=== PATIENT | male | born 1990 | race Two or more races ===

== ENCOUNTER 2024-09-30 09:26 | Inpatient (IN) | payer MEDICAID, OTHER ==
[~2024-09-30] VITALS: Ht 167.6 cm; Wt 68.1 kg
--- NOTE | 2024-09-30 09:56 | ED.PDOC ---
History of Present Illness HPI Comments 35Y M presents to ED via EMS for chief complaint general weakness. Pt states he keeps "going in and out of sleep" and is "blacking out" multiple times. Pt used meth yesterday. Pt denies SI. Upon ED evaluation, pt also c/o RLE swelling and redness. No known allergies. Chief Complaint: General Weakness Time Seen by MD: 09:33 Primary Care Provider: NONE Reviewed Notes: Medications, Allergies Allergies: Coded Allergies: NO KNOWN ALLERGIES (Unverified , 09/30/24) Information Source: Patient Mode of Arrival: EMS Severity: Mild Timing: Hours Duration: Since onset Prehospital treatment: None Past Medical History PAST MEDICAL HISTORY: Unknown Surgical History: Unknown Family History Family History: Unknown Social History Smoker: Unknown Alcohol: Unknown Drugs: Methamphetamine Lives In: Homeless, Unknown Constitutional: reports: weakness; denies: chills, diaphoresis, fatigue, fever, malaise, sweats, others EENTM: denies: blurred vision, double vision, ear bleeding, ear discharge, ear drainage, ear pain, ear ringing, eye pain, eye redness, hearing loss, mouth pain, mouth swelling, nasal discharge, nose bleeding, nose congestion, nose pain, photophobia, tearing, throat pain, throat swelling, voice changes, others Respiratory: denies: cough, hemoptysis, orthopnea, SOB at rest, shortness of breath, SOB with excertion, stridor, wheezing, others Cardiovascular: denies: chest pain, dizzy spells, diaphoresis, Dyspnea on exertion, edema, irregular heart beat, left arm pain, lightheadedness, palpitations, PND, syncope, others Gastrointestinal: denies: abdomen distended, abdominal pain, blood streaked bowels, constipated, diarrhea, dysphagia, difficulty swallowing, hematemesis, melena, nausea, poor appetite, poor fluid intake, rectal bleeding, rectal pain, vomiting, others Genitourinary: denies: burning, dysuria, flank pain, frequency, hematuria, incontinence, penile discharge, penile sore, pain, testicle pain, testicle swelling, urgency, others Neurological: denies: dizziness, fainting, headache, left sided numbness, left sided weakness, numbness, paresthesia, pre-existing deficit, right sided numbness, right sided weakness, seizure, speech problems, tingling, tremors, weakness, others Musculoskeletal: denies: back pain, gout, joint pain, joint swelling, muscle pain, muscle stiffness, neck pain, others Integumetry: denies: bruises, change in color, change in hair/nails, dryness, laceration, lesions, lumps, rash, wounds, others Allergic/Immunocompromised: denies: Difficulty Healing, Frequent Infections, Hives, Itching, others Hematologic/Lymphatic: denies: anemia, blood clots, easy bleeding, easy bruising, swollen glands, others Endocrine: denies: excessive hunger, excessive sweating, excessive thirst, excessive urination, flushing, intolerance to cold, intolerance to heat, unexplained weight gain, unexplained weight loss, others Psychiatric: denies: anxiety, bipolar disorder, depression, hopeless, panic disorder, schizophrenia, sleepless, suicidal, others All Other Systems: Reviewed and Negative Physical Exam General Appearance: Moderate Distress, Normal HEENT: Normal ENT Inspection, Pharynx Normal, TMs Normal Neck: Full Range of Motion, Non-Tender, Normal, Normal Inspection Respiratory: Chest Non-Tender, Lungs Clear, No Accessory Muscle Use, No Respiratory Distress, Normal Breath Sounds Cardiovascular: No Edema, No JVD, No Murmur, No Gallop, Normal Peripheral Pulses, Regular Rate/Rhythm Breast Exam: Deferred Gastrointestinal: No Organomegaly, Non Tender, No Pulsatile Mass, Normal Bowel Sounds, Soft Genitalia: Deferred Pelvic: Deferred Rectal: Deferred Extremities: No calf tenderness, Normal capillary refill, Normal range of motion, Non-tender, No pedal edema, Other (Mild redness right lower extremity) Musculoskeletal : Apperance: Normal Neurologic: Alert, checking clerk II-XII nml as Tested, No Motor Deficits, Normal Affect, Normal Mood, No Sensory Deficits Cerebellar Function: Normal Reflexes: Normal Skin: Dry, Normal Color, Warm Peripheral Pulses: 3+ Radial (R), 3+ Radial (L) Lymphatic: No Adenopathy Was a procedure done? Was a procedure done?: No Differential Dx Considerations may include: Cellulitis Electrolyte imbalance X-Ray, Labs, Meds, VS Vital Signs Date Time Temp Pulse Resp B/P (MAP) Pulse Ox O2 Delivery O2 Flow Rate FiO2 09/30/24 11:34 99.2 113 16 126/81 (96) 97 99.2 09/30/24 11:16 113 09/30/24 09:26 98.8 110 18 130/70 (90) 98 Lab Test 09/30/24 10:18 Range/Units White Blood Count 15.0 H 4.4-10.8 10^3/uL Red Blood Count 3.96 L 4.5-5.90 10^6/uL Hemoglobin 11.8 L 13.5-17.5 g/dL Hematocrit 34.6 L 41.0-53.0 % Mean Corpuscular Volume 87.3 80.0-100.0 fL Mean Corpuscular Hemoglobin 29.7 28.0-32.0 pg Mean Corpuscular Hemoglobin Concent 34.0 32.0-36.0 g/dL Red Cell Distribution Width 12.7 11.8-14.3 % Platelet Count 331 140-450 10^3/uL Mean Platelet Volume 8.5 6.9-10.8 fL Neutrophils (%) (Auto) 77.0 37.0-80.0 % Lymphocytes (%) (Auto) 8.6 L 10.0-50.0 % Monocytes (%) (Auto) 12.5 H 0.0-12.0 % Eosinophils (%) (Auto) 1.6 0.0-7.0 % Basophils (%) (Auto) 0.3 0.0-2.0 % Neutrophils # (Auto) 11.5 H 1.6-8.6 10 ^3/uL Lymphocytes # (Auto) 1.3 0.4-5.4 10 ^3/uL Monocytes # (Auto) 1.9 H 0-1.3 10 ^3/uL Eosinophils # (Auto) 0.2 0-0.8 10 ^3/uL Basophils # (Auto) 0 0-0.2 10 ^3/uL Nucleated Red Blood Cells 0.0 % Sodium Level 132 L 136-145 mmol/L Potassium Level 3.3 L 3.5-5.1 mmol/L Chloride Level 96 L 98-107 mmol/L Carbon Dioxide Level 25 20-31 mmol/L Anion Gap 11 5-15 Blood Urea Nitrogen 11 9-23 mg/dL Creatinine 0.69 L 0.700-1.30 mg/dL Glomerular Filtration Rate Calc 125 >90 mL/min BUN/Creatinine Ratio 15.9 10.0-20.0 Serum Glucose 125 H 74-106 mg/dL Calcium Level 9.5 8.7-10.4 mg/dL Total Bilirubin 1.0 0.2-1.0 mg/dL Aspartate Amino Transferase (AST) 70 H 13-40 U/L Alanine Aminotransferase (ALT) 49 H 7-40 U/L Alkaline Phosphatase 105 46-116 U/L Total Protein 7.6 5.7-8.2 g/dL Albumin 4.5 3.2-4.8 g/dL Patient alert. Uses drugs. Vitals stable. Answering all questions. Does have mild redness of the right lower extremity. Cellulitis. Counseled patient on effects of using drugs for 15 minutes. Was told to follow up with his primary care physician. Was told to come back if there is any problem. Patient left in came back by ambulance. Establish intravenous access. Was given fluids pain He will be admitted for cellulitis. Time of 1ST Reevaluation: 10:03 Reevaluation 1ST: Unchanged Patient Education/Counseling: Diagnosis, Treatment Family Education/Counseling: No Family Present Departure 1 Departure Time of Disposition: 10:24 Impression: Primary Impression: Cellulitis Qualified Codes: L03.115 - Cellulitis of right lower limb Additional Impression: Drug use Disposition: ADMITTED INPATIENT Admit to: Med Surg Condition: Guarded Critical Care Note Critical Care Time?: No Stability Stability form required: No Heart Score Heart Score: Heart Score Response (Comments) Value History N/A 0 EKG N/A 0 Age N/A 0 Risk Factors N/A 0 Troponin N/A 0 Total 0 I personally scribed for KERI RAMOS MD ([email or web address]) on 09/30/24 at 09:56. Electronically submitted by Andreina Rangel ([employer]). I personally scribed for KERI RAMOS MD ([email or web address]) on 09/30/24 at 09:57. Electronically submitted by Andreina Rangel ([employer]). KERI RAMOS MD Sep 30, 2024 09:56
[2024-09-30 10:44] LABS: Basophils # (auto) 0 10 ^3/uL (0-0.2); Basophils % (auto) 0.3 % (0.0-2.0); Eosinophils # (auto) 0.2 10 ^3/uL (0-0.8); Eosinophils % (auto) 1.6 % (0.0-7.0); Hematocrit 34.6 % (41.0-53.0); Hemoglobin 11.8 g/dL (13.5-17.5); Lymphocytes # (auto) 1.3 10 ^3/uL (0.4-5.4); Lymphocytes % (auto) 8.6 % (10.0-50.0); Mean Corpuscular Hemoglobin 29.7 pg (28.0-32.0); Mean Corpuscular Volume 87.3 fL (80.0-100.0); Monocytes # (auto) 1.9 10 ^3/uL (0-1.3); Monocytes % (auto) 12.5 % (0.0-12.0); Neutrophils # (auto) 11.5 10 ^3/uL (1.6-8.6); Platelet Count (auto) 331 10^3/uL (140-450); Red Blood Cells 3.96 10^6/uL (4.5-5.90); Red Cell Distribution Width 12.7 % (11.8-14.3)
[2024-09-30 10:45] LABS: Alanine Aminotransferase 49 U/L (7-40); Albumin 4.5 g/dL (3.2-4.8); Alkaline Phosphatase 105 U/L (46-116); Anion Gap 11 (5-15); Aspartate Aminotransferase 70 U/L (13-40); BUN/Creatinine Ratio 15.9 (10.0-20.0); Blood Urea Nitrogen 11 mg/dL (9-23); Calcium 9.5 mg/dL (8.7-10.4); Carbon Dioxide 25 mmol/L (20-31); Chloride 96 mmol/L (98-107); Glucose 125 mg/dL (74-106); Potassium 3.3 mmol/L (3.5-5.1); Sodium 132 mmol/L (136-145); Total Protein 7.6 g/dL (5.7-8.2)
[2024-09-30 12:45] VITALS: PULSE 113; RESP 18; O2SAT 98
[2024-09-30] MEDS: cefTRIAXone 1GM/50ML D5W 50 ML IV ONE (13:08)
[2024-09-30] MEDS ORDERED: ONDANSETRON HCL 4 MG/2 ML VIAL IV PRN (15:15)
[2024-09-30] MEDS ORDERED: LORazepam 0.5 MG TAB PO PRN (15:15)
[2024-09-30 16:09] VITALS: BP 114/52; PULSE 69; RESP 16; TEMP 97.9; O2SAT 95; O2SAT 97
--- NOTE | 2024-09-30 16:37 | DVHHP2 ---
History of Present Illness Reason for Visit: Cellulitis History of Present Illness 35-year-old male presented to the ED via EMS for syncope, weakness. Patient states he has blacked out x3. Patient admits to meth use yesterday. Patient also complains of right lower extremity swelling and redness. Patient denies chest pain, headache, dizziness, diaphoresis, shortness of breath, abdominal pain, no nausea, vomiting, fever, or chills endorsed by the patient. Patient was admitted for further evaluation medical management. Past Medical History Patient would not answer Past Surgical History Patient would not answer Family History Patient would not answer Drugs: Other (Methamphetamine) Review of Systems Constitutional: Yes: Weakness, Malaise; No: Fever, Chills, Sweats, Other Eyes: No: Pain, Vision change, Conjunctivae inflammation, Eyelid inflammation, Other, Redness ENT: No: Ear pain, Ear discharge, Nose pain, Nose discharge, Nose congestion, Mouth pain, Mouth swelling, Throat pain, Throat swelling, Other Respiratory: No: Cough, Dry, Shortness of breath, SOB with excertion, Wheezing, Hemoptysis, Pleuritic Pain, Sputum, Wheezing, Other Cardiovascular: Edema (Bilateral lower extremity edema +1); No: Chest Pain, Palpitations, Orthopnea, Paroxysmal Noc. Dyspnea, Lt Headedness, Other Gastrointestinal: No: Nausea, Vomiting, Abdominal Pain, Diarrhea, Constipation, Melena, Hematochezia, Other Genitourinary: No Dysuria, No Frequency, No Incontinence, No Hematuria, No Retention, No Other Musculoskeletal: leg pain (Bilateral); No: other, neck pain, shoulder pain, arm pain, back pain, hand pain, foot pain Skin: Other (Sore to left paz); No: Rash, Lesions, Jaundice, Bruising Neurological: No: Weakness, Numbness, Incoordination, Change in speech, C onfusion, Seizures, Other Allergies: Coded Allergies: NO KNOWN ALLERGIES (Unverified , 09/30/24) Medications Current Medications Medications Dose Ordered Sig/Nigel Route Start Time Stop Time Status Last Admin Dose Admin Lorazepam 0.5 mg Q6HP PRN PO 09/30/24 15:15 Acetaminophen/ Hydrocodone Bitart 1 tab Q4HP PRN PO 09/30/24 15:15 Ondansetron HCl 4 mg Q4HP PRN IV 09/30/24 15:15 Morphine Sulfate 2 mg Q4HPRN PRN IV 09/30/24 15:15 Exam Vital Signs Vital Signs Date Time Temp Pulse Resp B/P (MAP) Pulse Ox O2 Delivery O2 Flow Rate FiO2 09/30/24 15:00 89 122/66 (84) 99 09/30/24 14:00 18 09/30/24 12:45 Room Air* 0 21 09/30/24 11:34 99.2 99.2 General Appearance: Alert, Oriented X3, Cooperative, No acute distress HEENT: Atraumatic, PERRLA, EOMI, Mucous membr. moist/pink Respiratory: Clear to auscultation, Normal air movement Cardiovascular: Regular rate, Normal S1, Normal S2, No murmurs Abdominal: Normal bowel sounds, Soft, No tenderness, No hepatospenomegaly, No masses Extremities: No clubbing, No cyanosis, No edema, Normal pulses, No tenderness/swelling Skin: No rashes, No breakdown, No significant lesion Neuro: Normal gait, Normal speech, Strength at 5/5 X4 ext, Normal tone, Sensation intact, Cranial nerves 3-12 NL, Reflexes 2+ Psych/Mental Status: Mental status NL, Mood NL Labs/Xrays Labs, imaging and ED notes reviewed Labs Test 09/30/24 10:18 Range/Units White Blood Count 15.0 H 4.4-10.8 10^3/uL Red Blood Count 3.96 L 4.5-5.90 10^6/uL Hemoglobin 11.8 L 13.5-17.5 g/dL Hematocrit 34.6 L 41.0-53.0 % Mean Corpuscular Volume 87.3 80.0-100.0 fL Mean Corpuscular Hemoglobin 29.7 28.0-32.0 pg Mean Corpuscular Hemoglobin Concent 34.0 32.0-36.0 g/dL Red Cell Distribution Width 12.7 11.8-14.3 % Platelet Count 331 140-450 10^3/uL Mean Platelet Volume 8.5 6.9-10.8 fL Neutrophils (%) (Auto) 77.0 37.0-80.0 % Lymphocytes (%) (Auto) 8.6 L 10.0-50.0 % Monocytes (%) (Auto) 12.5 H 0.0-12.0 % Eosinophils (%) (Auto) 1.6 0.0-7.0 % Basophils (%) (Auto) 0.3 0.0-2.0 % Neutrophils # (Auto) 11.5 H 1.6-8.6 10 ^3/uL Lymphocytes # (Auto) 1.3 0.4-5.4 10 ^3/uL Monocytes # (Auto) 1.9 H 0-1.3 10 ^3/uL Eosinophils # (Auto) 0.2 0-0.8 10 ^3/uL Basophils # (Auto) 0 0-0.2 10 ^3/uL Nucleated Red Blood Cells 0.0 % Sodium Level 132 L 136-145 mmol/L Potassium Level 3.3 L 3.5-5.1 mmol/L Chloride Level 96 L 98-107 mmol/L Carbon Dioxide Level 25 20-31 mmol/L Anion Gap 11 5-15 Blood Urea Nitrogen 11 9-23 mg/dL Creatinine 0.69 L 0.700-1.30 mg/dL Glomerular Filtration Rate Calc 125 >90 mL/min BUN/Creatinine Ratio 15.9 10.0-20.0 Serum Glucose 125 H 74-106 mg/dL Calcium Level 9.5 8.7-10.4 mg/dL Total Bilirubin 1.0 0.2-1.0 mg/dL Aspartate Amino Transferase (AST) 70 H 13-40 U/L Alanine Aminotransferase (ALT) 49 H 7-40 U/L Alkaline Phosphatase 105 46-116 U/L Total Protein 7.6 5.7-8.2 g/dL Albumin 4.5 3.2-4.8 g/dL Assessment/Plan Assessment/Plan Cellulitis, right lower extremity Admit to medical/surgical Start antibiotics IV fluids x 1 L Encourage p.o. fluid intake Pain medications p.r.n. Substance abuse, methamphetamines Discussed abstinence Patient would like resources on rehab after hospitalization Consult group social worker UDS pending Ativan p.r.n. Rule out UTI UA pending Hypokalemia Monitor potassium Replace as needed FEN/PPX GI and VTE prophylaxis not indicated Regular diet IV fluids Plan discussed with: Patient My Orders Orders - CAMELIA GILBERT Procedure Category Date Status Time Admit ADMIT 09/30/24 Transmitted 15:04 Code Status CODE 09/30/24 Transmitted 15:04 Vital Signs [facility] 09/30/24 In Process 15:04 Review Orders With [facility] 09/30/24 In Process Adm. 15:04 Bedrest With Bathroom [facility] 09/30/24 In Process Privileg 15:04 Regular Diet DIET 09/30/24 Transmitted Dinner Lorazepam Tablet PHA 09/30/24 In Process (Ativan Tablet) 15:15 Notify Of Changes [facility] 09/30/24 In Process From Base 15:04 Advance Directive [facility] 09/30/24 In Process 15:04 Basic Metabolic Panel LAB 10/01/24 Verified 04:00 Complete Blood Count LAB 10/01/24 Verified 04:00 Patient Condition ORDERS 09/30/24 Transmitted 15:04 Allergies [facility] 09/30/24 In Process 15:04 Hydrocodone-Acet PHA 09/30/24 In Process 5/325mg Tab ([place] 15:15 Ondansetron Hcl PHA 09/30/24 In Process (Zofran) 15:15 Morphine Sulfate PHA 09/30/24 In Process Injection 15:15 Date of Service: Sep 30, 2024 Billing Provider: CAMELIA GILBERT Common Visit Codes: [id number] INP/OBS CARE (HIGH) CAMELIA GILBERT Sep 30, 2024 16:37
--- NOTE | 2024-09-30 17:55 | DVH ---
Bilateral lower extremity venous duplex Clinical History: Lower extremity edema and pain Comparison: None Technique: Duplex Doppler evaluation of the deep venous systems of both lower extremities from the common femora l veins to the popliteal veins including color Doppler and spectral/pulsed waveform analysis was perf ormed. Findings: RIGHT SIDE: The common femoral vein demonstrates appropriate compressibility and waveform variability. There is compressibility/patency of the great saphenous vein at the proximal thigh. The femoral vein demonstrates appropriate compressibility and waveform variability. The deep femoral vein demonstrates appropriate compressibility and waveform variability. The popliteal vein demonstrates appropriate compressibility and waveform variability. There is normal compressibility at the tibioperoneal trunk. LEFT SIDE: The common femoral vein demonstrates appropriate compressibility and waveform variability. There is compressibility/patency of the great saphenous vein at the proximal thigh. The femoral vein demonstrates appropriate compressibility and waveform variability. The deep femoral vein demonstrates appropriate compressibility and waveform variability. The popliteal vein demonstrates appropriate compressibility and waveform variability. There is normal compressibility at the tibioperoneal trunk. Prominent left groin lymph node measuring 0.8 cm in short axis, not grossly enlarged by size criteria . Impression: 1. No right or left femoropopliteal venous thrombosis. HS:Y
--- NOTE | 2024-09-30 18:04 | ECG ---
[facility] Test Date: 2024-09-30 Test Time: 11:16:39 Pat Name: BECKI JEROME Department: ED Room: 0219 B Gender: M Gaming Host: MARITZA : 1990 Requested By: KERI RAMOS Order Number: [id number] Reading MD: Saji Li Measurements Intervals [place] Rate: 113 P: 57 LA: 127 QRS: 57 QRSD: 83 T: -4 QT: 348 QTc: 478 Interpretive Statements Sinus tachycardia Inferolateral infarct, old Baseline wander in lead(s) II,aVR,aVF Electronically Signed On 10-06-2024 10:04:34 PST by Saji Li Please click the below link to view image of tracing.
[2024-09-30 18:40] VITALS: PULSE 96; RESP 16; O2SAT 97
[2024-09-30] MEDS: SODIUM CHLORIDE 0.9% 1,000 ML IV ONE (19:38)
[2024-09-30 20:00] VITALS: PULSE 96; RESP 18; O2SAT 95
[2024-09-30 21:00] VITALS: BP 114/61; PULSE 96; RESP 18; TEMP 97.8; O2SAT 95
[2024-09-30] MEDS: HYDROcodone-ACET 5/325MG TAB PO PRN (21:25)
[2024-10-01 01:00] VITALS: BP 115/62; PULSE 91; RESP 18; TEMP 97.8; O2SAT 97
[2024-10-01 05:00] VITALS: BP 110/64; PULSE 80; RESP 18; TEMP 98; O2SAT 96
[2024-10-01 06:56] LABS: Basophils # (auto) 0 10 ^3/uL (0-0.2); Basophils % (auto) 0.7 % (0.0-2.0); Eosinophils # (auto) 0.3 10 ^3/uL (0-0.8); Eosinophils % (auto) 5.4 % (0.0-7.0); Hemoglobin 10.2 g/dL (13.5-17.5); Lymphocytes # (auto) 1.6 10 ^3/uL (0.4-5.4); Lymphocytes % (auto) 24.8 % (10.0-50.0); Mean Corpuscular Hemoglobin 30.8 pg (28.0-32.0); Mean Corpuscular Hgb Conc. 35.3 g/dL (32.0-36.0); Mean Corpuscular Volume 87.3 fL (80.0-100.0); Monocytes # (auto) 0.9 10 ^3/uL (0-1.3); Monocytes % (auto) 13.5 % (0.0-12.0); Neutrophils # (auto) 3.5 10 ^3/uL (1.6-8.6); Neutrophils % (auto) 55.6 % (37.0-80.0); Platelet Count (auto) 255 10^3/uL (140-450); Red Blood Cells 3.32 10^6/uL (4.5-5.90); Red Cell Distribution Width 12.6 % (11.8-14.3); White Blood Cell 6.4 10^3/uL (4.4-10.8)
[2024-10-01 07:13] LABS: Anion Gap 5 (5-15); Carbon Dioxide 29 mmol/L (20-31); Chloride 104 mmol/L (98-107); Potassium 3.3 mmol/L (3.5-5.1); Sodium 138 mmol/L (136-145)
[2024-10-01 07:14] LABS: Calcium 8.4 mg/dL (8.7-10.4)
[2024-10-01 07:19] LABS: Blood Urea Nitrogen 9 mg/dL (9-23); Glucose 123 mg/dL (74-106)
[2024-10-01 09:00] VITALS: BP 107/59; PULSE 80; RESP 18; TEMP 97.9; O2SAT 98
[2024-10-01] MEDS: cefTRIAXone 1GM/50ML D5W 50 ML IV SCH (09:10)
[2024-10-01] MEDS: MORPHINE SULFATE INJ 2 MG/ml SYRG IV PRN (09:12)
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
--- NOTE | 2024-10-01 11:12 | DVH ---
EXAM: CT HEAD WITHOUT CONTRAST INDICATION: Headache TECHNIQUE: CT of the head without intravenous contrast. Coronal and sagittal reformatted images are submitted. Radiation Dose : 1. Head: CT Dose: CTDI volume is 56.58 mGy. Dose-length product is 1001.91 mGy*cm The dose indicators for CT are the volume Computed Tomography (CT) Dose Index (CTDIvol) and the Dose Length Product (DLP), and are measured in units of mGy and mGy-cm, respectively. These indicators are not patient dose, but values generated from the CT scanner acquisition factors. The report includes radiation exposure data for exposures received during this examination. All CT scans at this medical facility are performed using dose modulation techniques as appropriate to a performed exam including the following: Automated exposure control was utilized; adjustment of the MA and/or KV according to patient size; and use of iterative reconstruction technique. COMPARISON: None FINDINGS: There is no evidence of acute intracranial hemorrhage, extra-axial collection, mass effect, midline s hift, herniation or hydrocephalus. The ventricles, sulci and cisterns are age appropriate. The dejesus-white differentiation is intact. The visualized paranasal sinuses and mastoid air cells are clear. No depressed calvarial fracture. The surrounding soft tissues are unremarkable. IMPRESSION: 1. No evidence of acute intracranial abnormality.
[2024-10-01] MEDS: POTASSIUM CHL 20 Meq TABLET PO ONE (11:28)
[2024-10-01 11:50] LABS: Urine Bacteria FEW /hpf (None Seen); Urine Blood Negative /uL (Negative); Urine Clarity Ex.Turbid (Clear); Urine Color Yellow (Yellow); Urine Protein, UAD TRACE (Negative); Urine Specific Gravity 1.025 (1.001-1.035); Urine Urobilinogen 8 mg/dL (Negative); Urine WBC 3 /hpf (0 - 3); Urine pH 6.5 (5.0-9.0)
[2024-10-01 11:59] LABS: Amphetamine Screen, Urine Pos (NEGATIVE)
[2024-10-01 12:00] LABS: Barbiturate Scree,Urine Neg (NEGATIVE); Benzodiazephine Screen, Urine Neg (NEGATIVE); Cannabinoid Screen, Urine Neg (NEGATIVE); Cocaine Screen, Urine Neg (NEGATIVE); Opiate Scree,Urine Neg (NEGATIVE); Phencyclidine Screen, Urine Neg (NEGATIVE)
[2024-10-01 13:00] VITALS: BP 116/63; PULSE 94; RESP 18; TEMP 97.7; O2SAT 98
[2024-10-01 17:00] VITALS: BP 101/51; PULSE 86; RESP 18; TEMP 98.3; O2SAT 96
[2024-10-01] MEDS: PANTOPRAZOLE 40 MG TAB PO ONE (17:21)
[2024-10-01] MEDS: IBUPROFEN 800 MG TAB PO PRN (19:45)
[2024-10-01 21:00] VITALS: BP 100/54; PULSE 83; RESP 17; TEMP 97.8; O2SAT 98
[2024-10-02 05:00] VITALS: BP 112/63; PULSE 65; RESP 16; TEMP 97.6; O2SAT 98
[2024-10-02 07:04] LABS: Anion Gap 5 (5-15); Carbon Dioxide 28 mmol/L (20-31); Chloride 108 mmol/L (98-107); Potassium 3.8 mmol/L (3.5-5.1); Sodium 141 mmol/L (136-145)
[2024-10-02 07:05] LABS: Calcium 8.7 mg/dL (8.7-10.4)
[2024-10-02 07:10] LABS: BUN/Creatinine Ratio 24.5 (10.0-20.0); Blood Urea Nitrogen 13 mg/dL (9-23); Glucose 109 mg/dL (74-106)
[2024-10-02 07:11] LABS: Magnesium 2.2 mg/dL (1.6-2.6)
[2024-10-02] MEDS: PANTOPRAZOLE 40 MG TAB PO SCH (08:26)
[2024-10-02 09:30] VITALS: BP 111/66; PULSE 75; RESP 16; TEMP 97.9; O2SAT 100
--- NOTE | 2024-10-02 11:11 | DVHPN2 ---
Subjective No new complaints Cellulitis is better Changes from previous H/P or p: Changes Eyes: No Pain, No Vision change, No Conjunctivae inflammation, No Eyelid inflammation, No Other, No Redness ENT: No Ear pain, No Ear discharge, No Nose pain, No Nose discharge, No Nose congestion, No Mouth pain, No Mouth swelling, No Throat pain, No Throat swelling, No Other Cardiovascular: No Chest Pain, No Palpitations, No Orthopnea, No Paroxysmal Noc. Dyspnea; Edema (Bilateral lower extremity edema +1); No Lt Headedness, No Other Respiratory: No Cough, No Dry, No Shortness of breath, No SOB with excertion, No Wheezing, No Hemoptysis, No Pleuritic Pain, No Sputum, No Other Gastrointestinal: No Nausea, No Vomiting, No Abdominal Pain, No Diarrhea, No Constipation, No Melena, No Hematochezia, No Other Genitourinary: No Dysuria, No Frequency, No Incontinence, No Hematuria, No Retention, No Other Musculoskeletal: No other, No neck pain, No shoulder pain, No arm pain, No back pain, No hand pain; leg pain (Bilateral); No foot pain Skin: No Rash, No Lesions, No Jaundice, No Bruising; Other (Sore to left paz) Objective Vitals Vital Signs Date Time Temp Pulse Resp B/P (MAP) Pulse Ox O2 Delivery O2 Flow Rate FiO2 10/02/24 09:30 97.9 75 16 111/66 (81) 100 97.9 10/01/24 07:30 Room Air* 0 21 Intake/Output Intake and Output 10/02/24 07:00 Intake Total 2375 ml Output Total 500 ml Balance 1875 ml Intake Oral 2325 ml IV Total 50 ml Output Urine Total 500 ml # Voids 1 # Bowel Movements 1 General Appearance: Alert, Oriented X3, Cooperative, No acute distress Lungs: Clear to auscultation, Normal air movement Cardiovascular: Regular rate, Normal S1, Normal S2 Abdomen: Normal bowel sounds, Soft, No tenderness Extremities: No edema Medications Current Medications Medications Dose Ordered Sig/Nigel Route Start Time Stop Time Status Last Admin Dose Admin Lorazepam 0.5 mg Q6HP PRN PO 09/30/24 15:15 Acetaminophen/ Hydrocodone Bitart 1 tab Q4HP PRN PO 09/30/24 15:15 10/02/24 08:27 1 TAB Ondansetron HCl 4 mg Q4HP PRN IV 09/30/24 15:15 Morphine Sulfate 2 mg Q4HPRN PRN IV 09/30/24 15:15 10/02/24 00:56 2 MG Ceftriaxone Sodium 50 ml @ 100 mls/hr DAILY@09 IV 10/01/24 09:00 10/02/24 08:27 100 MLS/HR Ibuprofen 800 mg Q8HP PRN PO 10/01/24 16:45 10/01/24 19:45 800 MG Pantoprazole Sodium 40 mg DAILY@0600 PO 10/02/24 06:00 10/02/24 08:26 40 MG Laboratory Results Laboratory Tests 10/01/24 06:16 10/02/24 05:58 Chemistry Test 10/02/24 05:58 Calcium Level 8.7 mg/dL (8.7-10.4) Magnesium Level 2.2 mg/dL (1.6-2.6) Urinalysis Test 10/01/24 11:15 Urine Color Yellow (Yellow) Urine Clarity Ex.turbid (Clear) Urine pH 6.5 (5.0-9.0) Urine Specific [place] 1.025 (1.001-1.035) Urine Protein Trace (Negative) H Urine Ketones 1+ (Negative) H Urine Blood Negative /uL (Negative) Urine Nitrite Negative (Negative) Urine Bilirubin Negative (Negative) Urine Urobilinogen 8 mg/dL (Negative) H Urine Leukocyte Esterase Negative /uL (Negative) Urine RBC 2 /hpf (0 - 3) Urine WBC 3 /hpf (0 - 3) Urine Squamous Epithelial Cells None seen /hpf (<5) Urine Bacteria Few /hpf (None Seen) H Urine Glucose Normal mg/dL (Normal) Assessment/Plan Assessment/Plan Altered level of consciousness Status post possible syncope Rule out seizures Substance abuse with methamphetamine Right leg cellulitis Hypokalemia Plan 10/01/2024: Continue IV antibiotics Pain control CT scan of the head Replace potassium Monitor closely Urine drug screen pending Full code Advance directives discussed for 15 minutes 10/02/2024: Continue IV Rocephin Pain control as needed CT scan of the head was negative Urine drug screen was positive for amphetamines Discharge planning for tomorrow Plan discussed with: Patient My Orders Orders - TORY BARRETT MD Procedure Category Date Status Time Ibuprofen Tablet PHA 10/01/24 In Process (Motrin Tablet) 16:45 Pantoprazole Tablet PHA 10/02/24 In Process (Protonix Tablet) 06:00 Date of Service: Oct 02, 2024 Billing Provider: TORY BARRETT MD Common Visit Codes: [id number] INP/OBS CARE(HIGH) TORY BARRETT MD Oct 02, 2024 11:11
[2024-10-02 13:00] VITALS: BP 117/79; PULSE 75; RESP 17; TEMP 98; O2SAT 98
--- NOTE | 2024-10-02 14:35 | DVH ---
CHEST RADIOGRAPH Indication:SOB Technique: Single frontal view of the chest was obtained Comparison: None FINDINGS: Lines and Tubes: None Lungs: No focal consolidation. Pleura: No effusion. No pneumothorax. Cardiomediastinal contours: Unremarkable Bones: No acute osseous abnormality. IMPRESSION: 1. No acute cardiopulmonary disease.
[2024-10-02 17:00] VITALS: BP 129/62; PULSE 69; RESP 18; TEMP 97.8; O2SAT 100
[2024-10-02 21:00] VITALS: BP 131/74; PULSE 83; RESP 20; TEMP 98.8; O2SAT 100
[2024-10-03 01:00] VITALS: BP 114/62; PULSE 74; RESP 20; TEMP 98.7; O2SAT 97
[2024-10-03 05:00] VITALS: BP 105/63; PULSE 73; RESP 20; TEMP 98.2; O2SAT 98
[2024-10-03 09:00] VITALS: BP 119/62; PULSE 64; RESP 17; TEMP 98.2; O2SAT 98
[2024-10-03 09:23] LABS: Hepatitis B Surface Antigen Negative (Negative)
[2024-10-03 09:42] LABS: Hepatitis B Core IgM Negative
[2024-10-03 09:44] LABS: Hepatitis A Ab IgM Negative
[2024-10-03] MEDS ORDERED: HYDR-4902 PO (10:00)
[2024-10-03] MEDS ORDERED: AUG875T PO (10:00)
--- NOTE | 2024-10-03 10:04 | DVHDS2 ---
Discharge Summary Date of Admission Sep 30, 2024 at 15:04 Date of Discharge: Oct 03, 2024 Labs/Diagnostic Data: Laboratory Results Test 10/02/24 14:48 10/02/24 05:58 10/01/24 11:15 10/01/24 06:16 HIV (1&2) Antibody Negative (Negative) Sodium Level 141 mmol/L (136-145) Potassium Level 3.8 mmol/L (3.5-5.1) Chloride Level 108 mmol/L (98-107) Carbon Dioxide Level 28 mmol/L (20-31) Anion Gap 5 (5-15) Blood Urea Nitrogen 13 mg/dL (9-23) Creatinine 0.53 mg/dL (0.700-1.30) Glomerular Filtration Rate Calc 136 mL/min (>90) BUN/Creatinine Ratio 24.5 (10.0-20.0) Serum Glucose 109 mg/dL (74-106) Calcium Level 8.7 mg/dL (8.7-10.4) Magnesium Level 2.2 mg/dL (1.6-2.6) B-Type Natriuretic Peptide 61.28 pg/mL (0-100) Thyroid Stimulating Hormone (TSH) 1.88 uIU/mL (0.55-4.78) Urine Color Yellow (Yellow) Urine Clarity Ex.turbid (Clear) Urine pH 6.5 (5.0-9.0) Urine Specific [place] 1.025 (1.001-1.035) Urine Protein Trace (Negative) Urine Ketones 1+ (Negative) Urine Blood Negative /uL (Negative) Urine Nitrite Negative (Negative) Urine Bilirubin Negative (Negative) Urine Urobilinogen 8 mg/dL (Negative) Urine Leukocyte Esterase Negative /uL (Negative) Urine RBC 2 /hpf (0 - 3) Urine WBC 3 /hpf (0 - 3) Urine Squamous Epithelial Cells None seen /hpf (<5) Urine Bacteria Few /hpf (None Seen) Urine Glucose Normal mg/dL (Normal) Urine Opiates Screen Neg (NEGATIVE) Urine Fentanyl Screen Neg (NEGATIVE) Urine Barbiturates Screen Neg (NEGATIVE) Urine Phencyclidine Screen Neg (NEGATIVE) Urine Amphetamines Screen Pos (NEGATIVE) Urine Benzodiazepines Screen Neg (NEGATIVE) Urine Cocaine Screen Neg (NEGATIVE) Urine Cannabinoids Screen Neg (NEGATIVE) White Blood Count 6.4 10^3/uL (4.4-10.8) Red Blood Count 3.32 10^6/uL (4.5-5.90) Hemoglobin 10.2 g/dL (13.5-17.5) Hematocrit 29.0 % (41.0-53.0) Mean Corpuscular Volume 87.3 fL (80.0-100.0) Mean Corpuscular Hemoglobin 30.8 pg (28.0-32.0) Mean Corpuscular Hemoglobin Concent 35.3 g/dL (32.0-36.0) Red Cell Distribution Width 12.6 % (11.8-14.3) Platelet Count 255 10^3/uL (140-450) Mean Platelet Volume 8.3 fL (6.9-10.8) Neutrophils (%) (Auto) 55.6 % (37.0-80.0) Lymphocytes (%) (Auto) 24.8 % (10.0-50.0) Monocytes (%) (Auto) 13.5 % (0.0-12.0) Eosinophils (%) (Auto) 5.4 % (0.0-7.0) Basophils (%) (Auto) 0.7 % (0.0-2.0) Neutrophils # (Auto) 3.5 10 ^3/uL (1.6-8.6) Lymphocytes # (Auto) 1.6 10 ^3/uL (0.4-5.4) Monocytes # (Auto) 0.9 10 ^3/uL (0-1.3) Eosinophils # (Auto) 0.3 10 ^3/uL (0-0.8) Basophils # (Auto) 0 10 ^3/uL (0-0.2) Nucleated Red Blood Cells 0.0 % Test 09/30/24 10:18 Total Bilirubin 1.0 mg/dL (0.2-1.0) Aspartate Amino Transferase (AST) 70 U/L (13-40) Alanine Aminotransferase (ALT) 49 U/L (7-40) Alkaline Phosphatase 105 U/L (46-116) Total Protein 7.6 g/dL (5.7-8.2) Albumin 4.5 g/dL (3.2-4.8) Other Laboratory Tests 10/02/24 05:58 10/01/24 06:16 Brief Hx & Hospital Course: Final diagnoses: Right lower extremity cellulitis Left lower extremity abrasions Hypokalemia Metabolic encephalopathy due to methamphetamine use He was given IV antibiotics for the cellulitis in his right leg He also had abrasions from his monitoring brace that he wears on his left ankle The erythema and edema improved His urine drug screen positive for amphetamine Leukocytosis improved with antibiotics Potassium was replaced He is feeling better now and therefore he will be discharged home on Augmentin for 7 days and Blum p.r.n. Follow up with the his PCP as soon as possible Condition at Discharge: Stable Final Diagnosis/Problems List Right lower extremity cellulitis Left lower extremity abrasions Hypokalemia Metabolic encephalopathy due to methamphetamine use Discharge Disposition: Home SNF Discharge Will this Physician continue t: No Discharge Statement: "Patient was advised to return to the ER or call 911 if any headaches, dizziness, shortness of breath, chest pain, abdominal pain, bleeding, fevers, or worsening of medical condition. Patient was counseled about treatment plan, medications, possible side effects, patientverbalized understanding. All questions were answered to the best of my ability. This discharge took greater then 30 minutes in planning, reviewing documentation, counseling the patient, and discussing with other team members." ASSESSMENT ASSESSMENT Assessment Date of Service: Oct 03, 2024 Billing Provider: TORY BARRETT MD Common Visit Codes: 80543-RSW/OBS DISCH DAY >30min TORY BARRETT MD Oct 03, 2024 10:04
[2024-10-03 10:58] LABS: Hepatitis C Antibody Positive (Negative)
[2024-10-03 13:00] VITALS: BP 127/46; PULSE 79; RESP 18; TEMP 98.7; O2SAT 99
--- NOTE | 2024-10-03 16:20 | DVHSR ---
APPROVED REPORT EXAM: Two-dimensional and M-mode echocardiogram with Doppler and color Doppler. Blood Pressure: 117/79 mmHg INDICATION SOB RISK FACTORS Height: 5'6", Weight: 150 DIMENSIONS LVDd4.4 (3.8-5.7cm)LA (2D)4.3 (1.9-4.0cm)Aortic Root3.0 (2.0-3.7cm) LVDs3.1 (2.5-4.0cm)LA (MM) (1.9-4.0cm)Aortic Cusp Exc2.1 (1.5-2.0cm) EF (%) 55.0 (55-70%)Rt. Atrium4.0 (1.9-4.0cm)Asc. Aorta cm IVSd0.7 (0.7-1.1cm)RV (D) (1.8-2.4cm) PWd0.8 (0.7-1.1cm) Mitral Valve MitralMitral Stenosis E wave0.98m/sMV Mean GR.mmHg A wave0.60m/sMV Peak GR.mmHg E/A ratio1.62D MVAcm2 DECEL [id number] 1/2 Timems Aortic Valve Aortic ValveAortic Stenosis V10.98m/Ernesto Mean GR.5mmHg V21.54m/Ernesto Peak GR.10mmHg LVOT Diameter2.1 (1.8-2.4cm)Doppler AVA2.20cm2 Pulmonic Valve V21.37m/s Tricuspid Valve TR Velocity2.68m/s [id number] Conclusion Normal left ventricular size and dimension. Normal left ventricular systolic function estimated ejec tion fraction 55%. There is a grade 1 diastolic dysfunction. Normal right ventricular size and dimension. Normal right ventricular systolic function. Estimated right ventricular systolic [id number] mm of mercury. Normal biatrial size and dimension. Normal aortic valve structure and function. Normal mitral valve structure function. Normal tricuspid valve structure and function. The pulmonary valve is grossly normal. No pericardial effusion. New
== END 2024-10-03 13:15 | disposition home or self-care (01) | DRG 720 ==
LOC: EDBD 09:26 → ER 09:26 → OVERFLOW 15:04 → CENTRAL 16:17
PROVIDERS: ADMIT Internal Medicine Geriatric Medicine; ATTEND Internal Medicine Geriatric Medicine
DX: A41.9 Sepsis, unspecified organism (principal); G93.41 Metabolic encephalopathy; L03.115 Cellulitis of right lower limb; E87.6 Hypokalemia; T43.655A Adverse effect of methamphetamines, initial encounter; F15.10 Other stimulant abuse, uncomplicated; Z59.00 Homelessness unspecified; Y92.89 Other specified places as the place of occurrence of the external cause
CPT/HCPCS: 36415; 70450; 71045; 80048; 80053; 80074; 80307; 81001; 83735; 83880; 84443; 85025; 86703; 93005; 93306; 93970; G0378

== ENCOUNTER 2024-10-14 17:06 | Inpatient (IN) | payer MEDICAID ==
[~2024-10-14] VITALS: Ht 167.6 cm; Wt 78.6 kg
[~2024-10-14 17:06] MED LIST: AUG875T PO; HYDR-4902 PO
--- NOTE | 2024-10-14 17:15 | ED.PDOC ---
History of Present Illness(SKN HPI Comments 34 y.o male presents to the ED via EMS for a chief complaint of left foot pain x 1 week. Pain presents on the left toe and radiates to patient's ankle, described as sharp and rating a 9/10 on the pain scale. Patient reports he was seen at this hospital about 1-2 weeks ago for same complaint, was diagnosed with cellulitis of the foot, admitted and discharged with PO Penicillin for 7 days. Patient reports finishing the medication but reports wound is not improving. Patient denies any fever, chills, discharge, redness, or swelling. No medical, surgical history or allergies reported. Time Seen by MD: 17:08 Primary Care Provider: NONE History of Present Illness: Nurses Notes, Ocular Care Technician Notes, Medications, Allergies Allergies: Coded Allergies: NO KNOWN ALLERGIES (Unverified , 09/30/24) Home Meds Active Scripts Amoxicillin & Pot Clavulanate (AUGMENTIN TABLET) 875 Mg Tb, 875 MG PO BID for 7 Days, #14 TAB Prov:TORY BARRETT MD 10/03/24 Hydrocodone-Acetaminophen (Hydrocodone Bitartrate/AC 5-325 mg) 1 Tab Tab, 1 TAB PO Q6HP PRN, #15 TAB Prov:TORY BARRETT MD 10/03/24 Information Source: Patient, Emergency Med Personnel Mode of Arrival: EMS Severity: Moderate Timing: Weeks (1) Duration: Since onset Location: Foot Mechanism: Preceding Wound Wound Type: Unknown History of: None Associated Signs and Symptoms: Pain Past Medical History PAST MEDICAL HISTORY: Denies Surgical History: Denies all surgeries Family History Family History: Reviewed,noncontributory to illness Social History Smoker: Cigarettes Alcohol: Denies ETOH Use Drugs: Methamphetamine Lives In: Homeless, Unknown Constitutional: denies: chills, diaphoresis, fatigue, fever, malaise, sweats, weakness, others EENTM: denies: blurred vision, double vision, ear bleeding, ear discharge, ear drainage, ear pain, ear ringing, eye pain, eye redness, hearing loss, mouth pain, mouth swelling, nasal discharge, nose bleeding, nose congestion, nose pain, photophobia, tearing, throat pain, throat swelling, voice changes, others Respiratory: denies: cough, hemoptysis, orthopnea, SOB at rest, shortness of breath, SOB with excertion, stridor, wheezing, others Cardiovascular: denies: chest pain, dizzy spells, diaphoresis, Dyspnea on exertion, edema, irregular heart beat, left arm pain, lightheadedness, palpitations, PND, syncope, others Gastrointestinal: denies: abdomen distended, abdominal pain, blood streaked bowels, constipated, diarrhea, dysphagia, difficulty swallowing, hematemesis, melena, nausea, poor appetite, poor fluid intake, rectal bleeding, rectal pain, vomiting, others Genitourinary: denies: burning, dysuria, flank pain, frequency, hematuria, incontinence, penile discharge, penile sore, pain, testicle pain, testicle swelling, urgency, others Neurological: denies: dizziness, fainting, headache, left sided numbness, left sided weakness, numbness, paresthesia, pre-existing deficit, right sided numbness, right sided weakness, seizure, speech problems, tingling, tremors, weakness, others Musculoskeletal: denies: back pain, gout, joint pain, joint swelling, muscle pain, muscle stiffness, neck pain, others Integumetry: reports: wounds; denies: bruises, change in color, change in hair/nails, dryness, laceration, lesions, lumps, rash, others Allergic/Immunocompromised: denies: Difficulty Healing, Frequent Infections, Hives, Itching, others Hematologic/Lymphatic: denies: anemia, blood clots, easy bleeding, easy bruising, swollen glands, others Endocrine: denies: excessive hunger, excessive sweating, excessive thirst, excessive urination, flushing, intolerance to cold, intolerance to heat, unexplained weight gain, unexplained weight loss, others Psychiatric: denies: anxiety, bipolar disorder, depression, hopeless, panic disorder, schizophrenia, sleepless, suicidal, others All Other Systems: Reviewed and Negative Physical Exam General Appearance: Mild Distress HEENT: Normal ENT Inspection, Pharynx Normal, TMs Normal Neck: Full Range of Motion, Non-Tender, Normal, Normal Inspection Respiratory: Chest Non-Tender, Lungs Clear, No Accessory Muscle Use, No Respiratory Distress, Normal Breath Sounds Cardiovascular: No Edema, No JVD, No Murmur, No Gallop, Normal Peripheral Pulses, Regular Rate/Rhythm Breast Exam: Deferred Gastrointestinal: No Organomegaly, Non Tender, No Pulsatile Mass, Normal Bowel Sounds, Soft Genitalia: Deferred Pelvic: Deferred Rectal: Deferred Extremities: No calf tenderness, Normal capillary refill, No pedal edema Musculoskeletal : Apperance: Normal Neurologic: Alert, environmental emergencies planner II-XII nml as Tested, No Motor Deficits, Normal Affect, Normal Mood, No Sensory Deficits Cerebellar Function: Normal Reflexes: Normal Skin: Dry, Warm, Other (Redness to the left foot with significant swelling around the toes consistent with cellulitis) Lymphatic: No Adenopathy Was a procedure done? Was a procedure done?: No Differential Diagnosis (INTG) Differential Diagnosis: Cellulitis Differential Diagnosis: Abscess, Cellulitis X-Ray, Labs, Meds, VS Vital Signs Date Time Temp Pulse Resp B/P (MAP) Pulse Ox O2 Delivery O2 Flow Rate FiO2 10/14/24 17:09 98.4 99 16 126/66 (86) 99 Lab Test 10/14/24 17:29 Range/Units White Blood Count 9.6 4.4-10.8 10^3/uL Red Blood Count 4.17 L 4.5-5.90 10^6/uL Hemoglobin 12.7 L 13.5-17.5 g/dL Hematocrit 36.7 L 41.0-53.0 % Mean Corpuscular Volume 88.1 80.0-100.0 fL Mean Corpuscular Hemoglobin 30.4 28.0-32.0 pg Mean Corpuscular Hemoglobin Concent 34.5 32.0-36.0 g/dL Red Cell Distribution Width 12.8 11.8-14.3 % Platelet Count 356 140-450 10^3/uL Mean Platelet Volume 8.3 6.9-10.8 fL Neutrophils (%) (Auto) 79.4 37.0-80.0 % Lymphocytes (%) (Auto) 11.7 10.0-50.0 % Monocytes (%) (Auto) 6.9 0.0-12.0 % Eosinophils (%) (Auto) 1.5 0.0-7.0 % Basophils (%) (Auto) 0.5 0.0-2.0 % Neutrophils # (Auto) 7.7 1.6-8.6 10 ^3/uL Lymphocytes # (Auto) 1.1 0.4-5.4 10 ^3/uL Monocytes # (Auto) 0.7 0-1.3 10 ^3/uL Eosinophils # (Auto) 0.1 0-0.8 10 ^3/uL Basophils # (Auto) 0 0-0.2 10 ^3/uL Nucleated Red Blood Cells 0.2 % Sodium Level 140 136-145 mmol/L Potassium Level 3.7 3.5-5.1 mmol/L Chloride Level 102 98-107 mmol/L Carbon Dioxide Level 30 20-31 mmol/L Anion Gap 8 5-15 Blood Urea Nitrogen 13 9-23 mg/dL Creatinine 0.94 0.700-1.30 mg/dL Glomerular Filtration Rate Calc 110 >90 mL/min BUN/Creatinine Ratio 13.8 10.0-20.0 Serum Glucose 98 74-106 mg/dL Calcium Level 9.9 8.7-10.4 mg/dL IV Hep-Lock was established The patient was being given clindamycin IV piggyback The CBC and chemistry panel are within normal limits The patient is being admitted to the hospitalist with a diagnosis of left foot cellulitis The x-ray of the left foot shows:FINDINGS/IMPRESSION: There is no evidence of acute fracture or dislocation. Hallux valgus deformity left great toe The visualized joint space is well maintained. The alignment is anatomical. There is no radiopaque foreign body. The patient was being admitted Images Reviewed?: Images reviewed and evaluated by me Time of 1ST Reevaluation: 17:11 Reevaluation 1ST: Unchanged Patient Education/Counseling: Diagnosis, Treatment, Prognosis, Need For Follow Up Family Education/Counseling: No Family Present Departure 1 Departure Time of Disposition: 18:37 Impression: Primary Impression: Cellulitis of left foot Disposition: ADMITTED INPATIENT Admit to: Med Surg Condition: Fair Critical Care Note Critical Care Time?: No Stability Stability form required: Yes Unstable for transfer: ED Physician Assesment (Clinical assesment) I personally scribed for SANDY PALOMINO MD ([email or web address]) on 10/14/24 at 17:15. Electronically submitted by Melani Sheikh ([facility]). SANDY PALOMINO MD Oct 14, 2024 17:15
[2024-10-14 17:52] LABS: Chloride 102 mmol/L (98-107); Potassium 3.7 mmol/L (3.5-5.1); Sodium 140 mmol/L (136-145)
[2024-10-14 17:53] LABS: Anion Gap 8 (5-15); Basophils # (auto) 0 10 ^3/uL (0-0.2); Basophils % (auto) 0.5 % (0.0-2.0); Carbon Dioxide 30 mmol/L (20-31); Eosinophils # (auto) 0.1 10 ^3/uL (0-0.8); Eosinophils % (auto) 1.5 % (0.0-7.0); Hematocrit 36.7 % (41.0-53.0); Hemoglobin 12.7 g/dL (13.5-17.5); Lymphocytes # (auto) 1.1 10 ^3/uL (0.4-5.4); Lymphocytes % (auto) 11.7 % (10.0-50.0); Mean Corpuscular Hemoglobin 30.4 pg (28.0-32.0); Mean Corpuscular Hgb Conc. 34.5 g/dL (32.0-36.0); Mean Corpuscular Volume 88.1 fL (80.0-100.0); Monocytes # (auto) 0.7 10 ^3/uL (0-1.3); Monocytes % (auto) 6.9 % (0.0-12.0); Neutrophils # (auto) 7.7 10 ^3/uL (1.6-8.6); Neutrophils % (auto) 79.4 % (37.0-80.0); Nucleated Red Blood Cells % 0.2 %; Platelet Count (auto) 356 10^3/uL (140-450); Red Blood Cells 4.17 10^6/uL (4.5-5.90); Red Cell Distribution Width 12.8 % (11.8-14.3); White Blood Cell 9.6 10^3/uL (4.4-10.8)
[2024-10-14 17:54] LABS: Calcium 9.9 mg/dL (8.7-10.4)
[2024-10-14 17:58] LABS: BUN/Creatinine Ratio 13.8 (10.0-20.0); Blood Urea Nitrogen 13 mg/dL (9-23); Glucose 98 mg/dL (74-106)
--- NOTE | 2024-10-14 18:22 | DVH ---
CLINICAL INDICATION: pain and redness TECHNIQUE: 2 radiographic views of the left foot were obtained. Comparison: None FINDINGS/IMPRESSION: There is no evidence of acute fracture or dislocation. Hallux valgus deformity left great toe The visualized joint space is well maintained. The alignment is anatomical. There is no radiopaque foreign body.
[2024-10-14 20:10] VITALS: PULSE 98; RESP 16; O2SAT 94
[2024-10-14] MEDS ORDERED: ONDANSETRON HCL 4 MG/2 ML VIAL IV PRN (20:15)
[2024-10-14] MEDS ORDERED: NITROGLYCERIN 0.4 MG SL TAB SL PRN (20:15)
[2024-10-14] MEDS ORDERED: MORPHINE SULFATE INJ 2 MG/ml SYRG IV PRN ×2 (20:15)
[2024-10-14] MEDS: ONDANSETRON HCL 4 MG/2 ML VIAL IV ONE (20:28)
[2024-10-14] MEDS: CLINDAMYCIN 600MG IV 50 ML IV ONE (20:28)
[2024-10-14] MEDS: SODIUM CHLORIDE 0.9% 500 ML IV ONE (20:28)
[2024-10-14] MEDS: MORPHINE SULFATE 4 MG/ML SYR/VIAL IV ONE (20:29)
[2024-10-14 20:55] LABS: Alanine Aminotransferase 24 U/L (7-40); Albumin 4.5 g/dL (3.2-4.8); Alkaline Phosphatase 98 U/L (46-116); Anion Gap 8 (5-15); Aspartate Aminotransferase 18 U/L (13-40); BUN/Creatinine Ratio 15.2 (10.0-20.0); Bilirubin, Total 0.4 mg/dL (0.2-1.0); Blood Urea Nitrogen 14 mg/dL (9-23); Calcium 9.8 mg/dL (8.7-10.4); Carbon Dioxide 30 mmol/L (20-31); Chloride 102 mmol/L (98-107); Glucose 96 mg/dL (74-106); Potassium 3.8 mmol/L (3.5-5.1); Sodium 140 mmol/L (136-145); Total Protein 7.8 g/dL (5.7-8.2)
[2024-10-14] MEDS ORDERED: VANCOMYCIN PER PHARMACY 0 MG IV SCH (21:15)
--- NOTE | 2024-10-14 21:23 | DVHHPRES ---
History of Present Illness Resident Creating Document: JUSTICE CHAPARRO RESIDENT History of Present Illness BECKI JEROME is a 34 years old female with no significant PMH presented to the ED with the chief complaints of nonhealing left foot cellulitis. Patient reported, recently 4 days back discharged from this facility after being treated for cellulitis. Patient did not see any improvement, but developed worsening of pain 10/10, redness, unable to walk, hot sweats and nausea which brought him to visit ED. my assessment patient denies fever, headache, weakness and other associated symptoms. Past Medical History None Past Surgical History: None Family History: None Past Social History Lives at home. Active smoker smokes less than 1 pack per day, denies, alcohol and other drug abuse(methamphetamine positive on UDS) Review of Systems Constitutional: Yes: Chills, Sweats Eyes: No: Pain, Vision change, Conjunctivae inflammation, Eyelid inflammation, Other, Redness ENT: No: Ear pain, Ear discharge, Nose pain, Nose discharge, Nose congestion, Mouth pain, Mouth swelling, Throat pain, Throat swelling, Other Respiratory: No: Cough, Dry, Shortness of breath, SOB with excertion, Wheezing, Hemoptysis, Pleuritic Pain, Sputum, Wheezing, Other Cardiovascular: No: Chest Pain, Palpitations, Orthopnea, Paroxysmal Noc. Dyspnea, Edema, Lt Headedness, Other Gastrointestinal: Nausea; No: Vomiting, Abdominal Pain, Diarrhea, Constipation, Melena, Hematochezia, Other Genitourinary: No Dysuria, No Frequency, No Incontinence, No Hematuria, No Retention, No Other Musculoskeletal: No: other, neck pain, shoulder pain, arm pain, back pain, hand pain, leg pain, foot pain Skin: Other (Left foot pain, swelling) Neurological: No: Weakness, Numbness, Incoordination, Change in speech, C onfusion, Seizures, Other Allergies: Coded Allergies: NO KNOWN ALLERGIES (Unverified , 09/30/24) Medications Current Medications Medications Dose Ordered Sig/Nigel Route Start Time Stop Time Status Last Admin Dose Admin Sodium Chloride 10 ml Q8HR IV 10/14/24 22:00 Ondansetron HCl 4 mg Q4HP PRN IV 10/14/24 20:15 Acetaminophen 650 mg Q6HP PRN PO 10/14/24 20:15 Morphine Sulfate 2 mg Q4HPRN PRN IV 10/14/24 20:15 Nitroglycerin 0.4 mg Q5MINP PRN SL 10/14/24 20:15 Morphine Sulfate 2 mg Q30M PRN IV 10/14/24 20:15 Vancomycin HCl 0 ml @ 0 mls/hr UD IV 10/14/24 21:15 UNV Exam Vital Signs Vital Signs Date Time Temp Pulse Resp B/P (MAP) Pulse Ox O2 Delivery O2 Flow Rate FiO2 10/14/24 20:45 88 16 136/88 10/14/24 20:10 94 Room Air* 0 21 10/14/24 20:10 98.8 98.8 Exam Pt is lying on bed General Appearance: Alert, Oriented X3, Cooperative, mild distress HEENT: Atraumatic, Mucous membranes moist/pink Respiratory: Clear to auscultation, Normal air movement, No added sounds Cardiovascular: Regular rate, Normal S1, Normal S2, No murmurs Abdominal: Active bowel sounds, Soft, no distention, no tenderness Extremities: Left dorsum foot swelling, warmth, tender, redness, puncture site on left 5th toe Skin: Left dorsum foot swelling, warmth, tender, redness, puncture site on left 5th toe Neuro: Normal speech, sensorimotor deficits none Psych/Mental Status: Mental status NL, Mood NL Nurse was there as sharperone during examination Labs/Xrays Labs Test 10/14/24 20:30 10/14/24 17:29 Range/Units Sodium Level 140 136-145 mmol/L Potassium Level 3.8 3.5-5.1 mmol/L Chloride Level 102 98-107 mmol/L Carbon Dioxide Level 30 20-31 mmol/L Anion Gap 8 5-15 Blood Urea Nitrogen 14 9-23 mg/dL Creatinine 0.92 0.700-1.30 mg/dL Glomerular Filtration Rate Calc 113 >90 mL/min BUN/Creatinine Ratio 15.2 10.0-20.0 Serum Glucose 96 74-106 mg/dL Calcium Level 9.8 8.7-10.4 mg/dL Total Bilirubin 0.4 0.2-1.0 mg/dL Aspartate Amino Transferase (AST) 18 13-40 U/L Alanine Aminotransferase (ALT) 24 7-40 U/L Alkaline Phosphatase 98 46-116 U/L Total Protein 7.8 5.7-8.2 g/dL Albumin 4.5 3.2-4.8 g/dL White Blood Count 9.6 4.4-10.8 10^3/uL Red Blood Count 4.17 L 4.5-5.90 10^6/uL Hemoglobin 12.7 L 13.5-17.5 g/dL Hematocrit 36.7 L 41.0-53.0 % Mean Corpuscular Volume 88.1 80.0-100.0 fL Mean Corpuscular Hemoglobin 30.4 28.0-32.0 pg Mean Corpuscular Hemoglobin Concent 34.5 32.0-36.0 g/dL Red Cell Distribution Width 12.8 11.8-14.3 % Platelet Count 356 140-450 10^3/uL Mean Platelet Volume 8.3 6.9-10.8 fL Neutrophils (%) (Auto) 79.4 37.0-80.0 % Lymphocytes (%) (Auto) 11.7 10.0-50.0 % Monocytes (%) (Auto) 6.9 0.0-12.0 % Eosinophils (%) (Auto) 1.5 0.0-7.0 % Basophils (%) (Auto) 0.5 0.0-2.0 % Neutrophils # (Auto) 7.7 1.6-8.6 10 ^3/uL Lymphocytes # (Auto) 1.1 0.4-5.4 10 ^3/uL Monocytes # (Auto) 0.7 0-1.3 10 ^3/uL Eosinophils # (Auto) 0.1 0-0.8 10 ^3/uL Basophils # (Auto) 0 0-0.2 10 ^3/uL Nucleated Red Blood Cells 0.2 % Assessment/Plan Assessment/Plan # left foot cellulitis -ordered wound consult and wound culture -given clindamycin and vancomycin -monitor lab -consult surgery for further evaluation # methamphetamine abuse disorder # tobacco abuse disorder -given counseling regarding cessation for more than 17 minutes No VTE PPX No GI PPX Regular diet Goals of care discussed with the patient for more than 27 minutes: Full code status Case management discussed with Dr. Scott, patient and nurse Plan discussed with: Patient My Orders Orders - JUSTICE CHAPARRO RESIDENT Procedure Category Date Status Time Admit ADMIT 10/14/24 Transmitted 20:11 Allergies BASILIO 10/14/24 In Process 20:11 Code Status CODE 10/14/24 Transmitted 20:11 Sodium Chloride Lock PHA 10/14/24 In Process (Saline Lock Ns) 22:00 Ondansetron Hcl PHA 10/14/24 In Process (Zofran) 20:15 Complete Blood Count LAB 10/15/24 Verified 04:00 Comprehensive LAB 10/15/24 Verified Metabolic Panel 04:00 Acetaminophen Tablet PHA 10/14/24 In Process (Tylenol Tablet) 20:15 Morphine Sulfate PHA 10/14/24 In Process Injection 20:15 Nitroglycerin PHA 10/14/24 In Process Sublingual (Ntrostat 20:15 Morphine Sulfate PHA 10/14/24 In Process Injection 20:15 Oxygen By Nasal RT 10/14/24 Transmitted Cannula 20:11 Stat Ekg For Chest BASILIO 10/14/24 In Process Pain 20:11 Notify Md Of Changes BASILIO 10/14/24 In Process From Base 20:11 Guillotine Operator For [facility] 10/14/24 In Process 24 Hours 20:11 Emergency Dysrhythmia [facility] 10/14/24 In Process Protocol 20:11 Rhythm Strips Once [facility] 10/14/24 In Process Every Shift 20:11 Vancomycin Per PHA 10/14/24 Logged Pharmacy 21:15 Vitamin D, 25-Hydroxy LAB 10/14/24 In Process 21:14 Vitamin B12 LAB 10/14/24 In Process 21:14 Urinalysis LAB 10/14/24 Logged 21:14 Thyroid Stimulating LAB 10/14/24 In Process Hormone 21:14 PTPTT LAB 10/14/24 In Process 21:14 Hemoglobin A1c LAB 10/14/24 In Process 21:14 Drug Screen LAB 10/14/24 Logged 21:14 Blood Alcohol LAB 10/14/24 In Process 21:14 * Surgical Consult CONS 10/14/24 Transmitted * Wound Consult CONS 10/14/24 Transmitted Wound Culture W/ Gs HONG 10/14/24 Logged 21:20 Cleanse Wound W/ BASILIO 10/14/24 In Process Sterile Gauze 21:20 Date of Service: Oct 14, 2024 Billing Provider: SHKAA SCOTT MD Common Visit Codes: 88177-UGYMYDK INP/OBS CARE (HIGH) Secondary Visit Codes: 55315-ACEJYKTS CARE PLAN 30 MINUTES JUSTICE CHAPARRO Oct 14, 2024 21:23 SHAKA SCOTT MD Oct 15, 2024 12:51
[2024-10-14] MEDS: SODIUM CHLOR 0.9% PF (SALINE LOCK) 10ML VIAL/SYR IV SCH (22:00)
[2024-10-14] MEDS: VANCOMYCIN 1.5GM/300ML IV ONE (22:00)
[2024-10-14 22:58] LABS: INR 1.16 (0.9-1.15); Partial Thromboplastin Time 29.4 SEC (24.5-34.5); Prothrombin Time 12.2 sec (9.3-11.8)
[2024-10-14 23:25] VITALS: PULSE 79; RESP 18; O2SAT 99
[2024-10-14 23:58] LABS: Urine Bacteria FEW /hpf (None Seen); Urine Blood Negative /uL (Negative); Urine Clarity Clear (Clear); Urine Color Yellow (Yellow); Urine Mucus FEW (None Seen); Urine Protein, UAD Negative (Negative); Urine Specific Gravity 1.023 (1.001-1.035); Urine Urobilinogen Normal (Negative); Urine WBC 1 /hpf (0 - 3); Urine pH 5.5 (5.0-9.0)
[2024-10-15 00:15] LABS: Amphetamine Screen, Urine Pos (NEGATIVE); Barbiturate Scree,Urine Neg (NEGATIVE); Benzodiazephine Screen, Urine Neg (NEGATIVE); Cannabinoid Screen, Urine Neg (NEGATIVE); Cocaine Screen, Urine Neg (NEGATIVE); Opiate Scree,Urine Pos (NEGATIVE); Phencyclidine Screen, Urine Neg (NEGATIVE)
[2024-10-15] MEDS: HYDROcodone-ACET 5/325MG TAB PO ONE (00:18)
[2024-10-15] MEDS: HYDROcodone-ACET 5/325MG TAB PO PRN (00:22)
[2024-10-15] MEDS: ACETAMINOPHEN 325 MG TAB PO PRN (02:46)
[2024-10-15 04:57] LABS: Basophils # (auto) 0.1 10 ^3/uL (0-0.2); Basophils % (auto) 1.4 % (0.0-2.0); Eosinophils # (auto) 0.2 10 ^3/uL (0-0.8); Eosinophils % (auto) 4.2 % (0.0-7.0); Hematocrit 34.1 % (41.0-53.0); Hemoglobin 11.7 g/dL (13.5-17.5); Lymphocytes # (auto) 1.8 10 ^3/uL (0.4-5.4); Lymphocytes % (auto) 32.9 % (10.0-50.0); Mean Corpuscular Hemoglobin 30.6 pg (28.0-32.0); Mean Corpuscular Hgb Conc. 34.5 g/dL (32.0-36.0); Mean Corpuscular Volume 88.8 fL (80.0-100.0); Monocytes # (auto) 0.6 10 ^3/uL (0-1.3); Monocytes % (auto) 11.4 % (0.0-12.0); Neutrophils # (auto) 2.8 10 ^3/uL (1.6-8.6); Neutrophils % (auto) 50.1 % (37.0-80.0); Nucleated Red Blood Cells % 0.1 %; Platelet Count (auto) 317 10^3/uL (140-450); Red Blood Cells 3.83 10^6/uL (4.5-5.90); Red Cell Distribution Width 13.2 % (11.8-14.3); White Blood Cell 5.6 10^3/uL (4.4-10.8)
[2024-10-15 05:12] LABS: Alanine Aminotransferase 22 U/L (7-40); Albumin 3.9 g/dL (3.2-4.8); Alkaline Phosphatase 82 U/L (46-116); Anion Gap 6 (5-15); Aspartate Aminotransferase 13 U/L (13-40); BUN/Creatinine Ratio 13.2 (10.0-20.0); Bilirubin, Total 0.4 mg/dL (0.2-1.0); Blood Urea Nitrogen 9 mg/dL (9-23); Calcium 9.2 mg/dL (8.7-10.4); Carbon Dioxide 29 mmol/L (20-31); Chloride 104 mmol/L (98-107); Glucose 97 mg/dL (74-106); Potassium 4.1 mmol/L (3.5-5.1); Sodium 139 mmol/L (136-145); Total Protein 6.6 g/dL (5.7-8.2)
--- NOTE | 2024-10-15 07:05 | DVHPNRES ---
Progress Note Date Seen: Oct 15, 2024 Resident Creating Document: FADIA NELSON RESIDENT Medical Necessity Reason Pt with a Central, PICC or Fol: No Subjective Review of Systems Patient is a 34-year-old male with no significant past medical history who came in due to worsening left 5th toe cellulitis. According to the patient, 1 week ago he was diagnosed with left 5th toe cellulitis and was discharged with amoxicillin 4 days ago. Patient notes that since discharge he has been experiencing worsening left foot pain, nausea, dizziness and a headache which prompted this visit to the hospital. Denies any history of diabetes, Hb A1c 5.4. Past surgical history: Denies Home medications: Denies Past Hospitalization: 4 days ago due to left 5th toe cellulitis Social & Personal history: Patient lives with his girlfriend in [place] and is unemployed. Smokes 2-5 cigarettes per day for 5 years. Denies using any alcohol. Methamphetamine abuse history positive. Allergies: Denied Patient seen and examined at bedside. Patient is alert and oriented to time, place person and responding to all questions. General: Fatigue, chills Eyes: No Pain, No Vision change, No Conjunctivae inflammation, No Eyelid inflammation, No Other, No Redness ENT: No Ear pain, No Ear discharge, No Nose pain, No Nose discharge, No Nose congestion, No Mouth pain, No Mouth swelling, No Throat pain, No Throat swelling, No Other Cardiovascular: No Chest Pain, No Palpitations, Dyspnea, No Edema, No Lt Headedness, No Other Respiratory: No Cough, No Dry, Shortness of breath, No SOB with exertion, No Wheezing, No Hemoptysis, No Pleuritic Pain, No Sputum, No Other Gastrointestinal: Nausea, No Vomiting, No Abdominal Pain, No Diarrhea, No Constipation, No Melena, No Hematochezia, No Other Genitourinary: No Dysuria, urinary hesitancy, No Frequency, No Incontinence, No Hematuria, No Retention, No Other Musculoskeletal: No other, No neck pain, No shoulder pain, No arm pain, No back pain, No hand pain, No leg pain, No foot pain Skin: No Rash, No Lesions, No Jaundice, No Bruising, No Other Objective vital signs Vital Sign Date Time Temp Pulse Resp B/P (MAP) Pulse Ox O2 Delivery O2 Flow Rate FiO2 10/15/24 06:00 60 12 127/62 (83) 99 10/15/24 03:44 98.0 10/14/24 23:25 Room Air* 0 21 Total Intake and Output 10/14/24 10/14/24 10/15/24 15:00 23:00 07:00 Intake Total 750 ml 100 ml Output Total 750 ml Balance 750 ml -650 ml medications Current Medications Medications Dose Ordered Sig/Nigel Route Start Time Stop Time Status Last Admin Dose Admin Sodium Chloride 10 ml Q8HR IV 10/14/24 22:00 10/15/24 06:11 10 ML Ondansetron HCl 4 mg Q4HP PRN IV 10/14/24 20:15 Acetaminophen 650 mg Q6HP PRN PO 10/14/24 20:15 10/15/24 02:46 650 MG Morphine Sulfate 2 mg Q4HPRN PRN IV 10/14/24 20:15 Nitroglycerin 0.4 mg Q5MINP PRN SL 10/14/24 20:15 Morphine Sulfate 2 mg Q30M PRN IV 10/14/24 20:15 Vancomycin HCl 0 ml @ 0 mls/hr UD IV 10/14/24 21:15 UNV Acetaminophen/ Hydrocodone Bitart 1 tab Q4HPRN PRN PO 10/15/24 00:15 10/15/24 00:22 1 TAB Examination General Appearance: Cooperative. Well developed. Well nourished. NAD Head Exam: Normal inspection Neck Exam: Normal inspection. Non-tender. Normal alignment Pulmonary/Respiratory: Chest non-tender. Clear bilateral breath sounds, no crackles, no wheezing. Cardiovascular/Chest: Regular rate and rhythm. No murmurs. No JVD. Peripheral Pulses: 2+ Radial (R). 2+ Radial (L). 2+ Pedal (R). 2+ Pedal (L) Abdominal Exam: Normal bowel sounds. Soft. normal abdomen, no visible veins, Nontender. No hepatospenomegaly. No masses Ankle Exam: Negative ankle edema, Lankle monitor Lower extremities: Trace lower extremity edema left midfoot erythema and swelling noted along with tenderness to palpation. Open puncture wound noted on the ventral aspect of the left 5th toe Neuro/Mental Status: A&O x4. Coherent. Thoughts/Psych: Normal thought pattern. Appropriate mood and affect. Good judgement and insight Skin Exam: Normal inspection. Normal color. Warm. Dry laboratory and microbiology Laboratory Tests 10/15/24 04:36 Test 10/15/24 04:36 Range/Units Serum Glucose 97 74-106 mg/dL Labs and/or images reviewed: Labs reviewed by me, Image(s) reviewed by me Problem List/Assessment/Plan Problem List/Assessment/Plan Left 5th toe cellulitis - 500 mL bolus of IV NS - IV vancomycin per pharmacy, IV Zosyn - podiatry consulted - completed I and D today, pending C&S results Methamphetamine abuse - counseled patient extensively on the harmful effects of methamphetamine on his health and well-being Vitamin-D deficiency - repleted Goals of care: Full code, discussed for >16 minutes on 10/15/24 Plan discussed with patient Plan discussed with Dr. Nicolas Plan discussed with: Patient, Other (RN) FADIA NELSON RESIDENT Oct 15, 2024 07:05
[2024-10-15 08:00] VITALS: PULSE 67; RESP 16; O2SAT 92
[2024-10-15] MEDS: cefTRIAXone 1GM/50ML D5W 50 ML IV SCH (09:30)
[2024-10-15] MEDS ORDERED: LIDOCAINE 1% HCL (LOCAL ANESTH.) INJ 20ML MDV ONE (12:21)
[2024-10-15] MEDS ORDERED: fentaNYL CITRATE 100 MCG/2 ML VL ONE (12:26)
[2024-10-15] MEDS ORDERED: MIDAZOLAM HCL 2MG/2ML 2ml VIAL (1mg/ml) ONE (12:26)
[2024-10-15] MEDS ORDERED: LIDOCAINE 1% INJ PF 5ML AMP ONE (12:27)
[2024-10-15] MEDS ORDERED: PROPOFOL 10 MG/ML 20 ML IV ONE (12:27)
[2024-10-15] MEDS ORDERED: ONDANSETRON HCL 4 MG/2 ML VIAL ONE (12:27)
[2024-10-15] MEDS ORDERED: fentaNYL CITRATE 100 MCG/2 ML VL IV PRN (12:30)
[2024-10-15] MEDS ORDERED: ONDANSETRON HCL 4 MG/2 ML VIAL IV ONE (12:30)
[2024-10-15] MEDS: LIDOCAINE 1%HCL (LOCAL ANESTH) 10 ML MDV IJ ONE (12:48)
[2024-10-15] MEDS ORDERED: DexAMETHasone SOD PHOS 10MG/1ML VIAL INJ ONE (12:49)
[2024-10-15 12:58] VITALS: PULSE 54; RESP 12; O2SAT 100
--- NOTE | 2024-10-15 13:18 | DVHOP2 ---
Operative Report - 2 Report Details Date: 10/15/24 Preop Diagnosis: Left 5th toe abscess Postop Diagnosis: Same Surgeon: Daniel Gallagher MD Veterinary Radiologist: None Anesthesiologist: Luiz Hyatt CRNA Anesthesia: Mac, Local (1% with) Consent: The surgical risks including but not limited to infection, bleeding, open surg ical site requiring local wound care, possibility of toe amputation in the future were explained to the patient. All questions were answered to his satisfaction. He expressed verbal understanding and wished to proceed with the surgery. Complications: None Estimated Blood Loss: 2 mL Name of Procedure Performed Incision and drainage of left 5th toe abscess Procedure Details Procedure Details: After induction of monitored anesthesia, patient's left foot was prepped and draped in standard surgical fashion. A 10 mL of plain 1% lidocaine was used to perform a left toe block. A zigzag incision was made over the anterior surface of his left 1st toe and immediately there was pus that was drained from the abscess cavity. Abscess cavity was swabbed for Gram stain and culture. The incision was then opened to completely drain the abscess cavity which measured roughly 2 cm in size. The surgical site was then irrigated and packed with quarter-inch iodoform packing strips. Surgical site was cleaned and dried and dressings were applied. Sponge, needle, instrument count at the end of the case were reported to be correct by the nursing staff. The patient tolerated procedure well was awakened transferred to recovery in stable condition. Specimen: Gram stain and culture Condition Stable Disposition Still a Patient DANIEL GALLAGHER MD Oct 15, 2024 13:18
[2024-10-15] MEDS: KETOROLAC TROMETH 30 MG/ML 1ML VIAL IV ONE (13:25)
[2024-10-15] MEDS: HYDROmorphone HCL 2 MG/ML VL/or syr IV PRN (13:38)
[2024-10-15 14:11] VITALS: BP 110/64; PULSE 72; RESP 20; TEMP 97.6; O2SAT 100
[2024-10-15 14:47] VITALS: BP 110/64; PULSE 74; RESP 20; TEMP 97.6; O2SAT 100
[2024-10-15] MEDS: VANCOMYCIN 1.25GM/250ML 250 ML IV SCH (15:24)
[2024-10-15 17:00] VITALS: BP_SYST 113; BP_SYST 133; BP_DIAS 53; BP_DIAS 62; PULSE 69; RESP 20; TEMP 98.1; O2SAT 97
--- NOTE | 2024-10-15 17:34 | DVH ---
Left lower extremity Lower Extremity Arterial Duplex Clinical History: "PAD" Comparison: None Technique: Duplex Doppler evaluation including color Doppler and spectral/pulsed waveform analysis of the lower extremity arteries was performed. Findings: LEFT: Peak systolic velocities are as follows: GRAIN BLENDER on 111 cm/s Deep femoral 72 cm/s SFA proximal 131 cm/s SFA mid-portion 126 cm/s SFA distal 90 cm/s Popliteal 103 cm/s Posterior tibial 80 cm/s Dorsalis pedis 115 cm/s The waveforms are monophasic waveform in the posterior tibial artery and dorsalis pedis. IMPRESSION: 1. No hemodynamically significant stenosis based on peak systolic velocity criteria. 2. Monophasic waveforms in the posterior tibial and dorsalis pedis on the left. REFERENCE VALUES, [facility]) vascular Imaging Lab Criteria: Peak systolic velocity ranges (in cm/sec) are as follows: <150 cm/s - <20 % stenosis 150-200 cm/s - 20-49% stenosis 200-300 cm/s - 50-75% stenosis >300 cm/s -> 75% stenosis
[2024-10-15] MEDS: PIPERACILLIN-TAZOB 3.375GM 100 ML IV SCH (19:32)
[2024-10-15 21:00] VITALS: BP 124/60; PULSE 80; RESP 18; TEMP 97.9; O2SAT 97
[2024-10-16 05:00] VITALS: BP 127/57; PULSE 67; RESP 18; TEMP 98.2; O2SAT 97
[2024-10-16 05:10] LABS: Basophils # (auto) 0 10 ^3/uL (0-0.2); Basophils % (auto) 0.1 % (0.0-2.0); Eosinophils # (auto) 0 10 ^3/uL (0-0.8); Hemoglobin 11.1 g/dL (13.5-17.5); Lymphocytes # (auto) 0.7 10 ^3/uL (0.4-5.4); Mean Corpuscular Hemoglobin 29.8 pg (28.0-32.0); Mean Corpuscular Hgb Conc. 33.7 g/dL (32.0-36.0); Mean Corpuscular Volume 88.7 fL (80.0-100.0); Monocytes # (auto) 0.7 10 ^3/uL (0-1.3); Monocytes % (auto) 7.2 % (0.0-12.0); Neutrophils # (auto) 8.2 10 ^3/uL (1.6-8.6); Neutrophils % (auto) 85.7 % (37.0-80.0); Platelet Count (auto) 336 10^3/uL (140-450); Red Blood Cells 3.73 10^6/uL (4.5-5.90); Red Cell Distribution Width 13.1 % (11.8-14.3); White Blood Cell 9.6 10^3/uL (4.4-10.8)
[2024-10-16 05:13] LABS: Anion Gap 5 (5-15); Carbon Dioxide 28 mmol/L (20-31); Chloride 105 mmol/L (98-107); Sodium 138 mmol/L (136-145)
[2024-10-16 05:14] LABS: Calcium 9.3 mg/dL (8.7-10.4)
[2024-10-16 05:19] LABS: BUN/Creatinine Ratio 18.8 (10.0-20.0); Blood Urea Nitrogen 13 mg/dL (9-23); Glucose 160 mg/dL (74-106)
--- NOTE | 2024-10-16 08:21 | DVHPN2 ---
Progress Note - Dictate Date Seen: Oct 16, 2024 Medical Necessity Reason Pt with a Central, PICC or Fol: No Subjective E: no major events o/n. c/o min incisional pain. vital signs Vital Sign Date Time Temp Pulse Resp B/P (MAP) Pulse Ox O2 Delivery O2 Flow Rate FiO2 10/15/24 21:00 97.9 80 18 124/60 (81) 97 97.9 10/15/24 20:00 Room Air* 0 21 Total Intake and Output 10/15/24 10/15/24 10/16/24 15:00 23:00 07:00 Intake Total 200 ml 650 ml Output Total 300 ml Balance -100 ml 650 ml medications Current Medications Medications Dose Ordered Sig/Nigel Route Start Time Stop Time Status Last Admin Dose Admin Sodium Chloride 10 ml Q8HR IV 10/14/24 22:00 10/16/24 05:24 10 ML Ondansetron HCl 4 mg Q4HP PRN IV 10/14/24 20:15 Acetaminophen 650 mg Q6HP PRN PO 10/14/24 20:15 10/15/24 22:39 650 MG Nitroglycerin 0.4 mg Q5MINP PRN SL 10/14/24 20:15 Vancomycin HCl 0 ml @ 0 mls/hr UD IV 10/14/24 21:15 Acetaminophen/ Hydrocodone Bitart 1 tab Q4HPRN PRN PO 10/15/24 00:15 10/16/24 06:25 1 TAB Vancomycin HCl 250 ml @ 200 mls/hr Q12H IV 10/15/24 14:00 10/15/24 15:24 200 MLS/HR Piperacillin Sod/ Tazobactam Sod 100 ml @ 25 mls/hr Q6HR IV 10/15/24 18:00 10/16/24 05:24 25 MLS/HR objective GEN: NAD LEFT FOOT: dressing intact. laboratory and microbiology Laboratory Tests 10/16/24 04:11 Test 10/16/24 04:11 Range/Units Serum Glucose 160 H 74-106 mg/dL Assessment/Plan A: 1. s/p I+D left 5th toe abscess POD #1 stable. P: 1. stable from surgery POV. DC plan per hospitalist 2. BID moist to dry dressing changes. 3. f/u in clinic on 10/25. call [phone] for f/u appt. Dietary Evaluation Review Comments: 1. Consider adding Rick BID (180kcal, 5g pro) to diet Expected Outcomes/Goals: 1. Pt will consume >75% of estimated needs within 3-5 days Plan discussed with: Patient DANIEL ADORNO MD Oct 16, 2024 08:21
[2024-10-16 09:00] VITALS: BP 116/38; PULSE 61; RESP 20; TEMP 98; O2SAT 98
[2024-10-16 13:00] VITALS: BP 111/47; PULSE 72; RESP 20; TEMP 98; O2SAT 99
--- NOTE | 2024-10-16 13:28 | DVHPNRES ---
Progress Note Date Seen: Oct 16, 2024 Resident Creating Document: KATE CHRISTOPHER RESIDENT Has the PT tested + for MRSA If YES, has PT been informed?: Yes Medical Necessity Reason Pt with a Central, PICC or Fol: No Subjective Review of Systems Saw the patient at bedside, patient is comfortable, left lower leg surgical wound well dressed, uncomplicated, no discharge noted. Healthy wound site. Patient reports: No new complaints, Feels better Changes from previous H/P or p: No Changes Review of Systems: HEENT:Normal, CVS:Normal, RESPIRATORY:Normal, GI:Abnormal (Constipation), :Normal, MSK:Abnormal (Left foot post surgical wound), NEURO:Normal Objective vital signs Vital Sign Date Time Temp Pulse Resp B/P (MAP) Pulse Ox O2 Delivery O2 Flow Rate FiO2 10/16/24 09:00 98.0 61 20 116/38 (64) 98 98.0 10/16/24 08:00 Room Air* 0 21 Total Intake and Output 10/15/24 10/15/24 10/16/24 15:00 23:00 07:00 Intake Total 200 ml 650 ml Output Total 300 ml Balance -100 ml 650 ml medications Current Medications Medications Dose Ordered Sig/Nigel Route Start Time Stop Time Status Last Admin Dose Admin Sodium Chloride 10 ml Q8HR IV 10/14/24 22:00 10/16/24 05:24 10 ML Ondansetron HCl 4 mg Q4HP PRN IV 10/14/24 20:15 Acetaminophen 650 mg Q6HP PRN PO 10/14/24 20:15 10/15/24 22:39 650 MG Nitroglycerin 0.4 mg Q5MINP PRN SL 10/14/24 20:15 Vancomycin HCl 0 ml @ 0 mls/hr UD IV 10/14/24 21:15 Acetaminophen/ Hydrocodone Bitart 1 tab Q4HPRN PRN PO 10/15/24 00:15 10/16/24 12:12 1 TAB Vancomycin HCl 250 ml @ 200 mls/hr Q12H IV 10/15/24 14:00 10/15/24 15:24 200 MLS/HR Piperacillin Sod/ Tazobactam Sod 100 ml @ 25 mls/hr Q6HR IV 10/15/24 18:00 10/16/24 12:13 25 MLS/HR Examination: GENERAL:Normal, HEENT:Normal, NECK:Normal, LUNGS:Normal, CVS:Normal, ABDOMEN:Normal, MSK:Abnormal (Left lower foot surgical wound, local dressing noted), SKIN:Normal (Multiple tattoos), NEURO:Normal laboratory and microbiology Laboratory Tests 10/16/24 04:11 Test 10/16/24 04:11 Range/Units Serum Glucose 160 H 74-106 mg/dL Microbiology Date/Time Source Procedure Growth Status 10/15/24 12:50 Foot Gram Stain Pending Resulted 10/15/24 12:50 Foot Wound Culture - Preliminary Resulted 10/15/24 11:19 Blood Blood Culture - Preliminary NO GROWTH AFTER 24 HOURS OF INCUBATION. Resulted 10/14/24 23:48 Voided Urine Urine Culture - Preliminary Resulted Labs and/or images reviewed: Labs reviewed by me, Image(s) reviewed by me Problem List/Assessment/Plan Problem List/Assessment/Plan Hospital Course: A 34-year-old male with no significant past medical history presented with worsening left 5th toe cellulitis, initially diagnosed a week ago and treated with amoxicillin. Since discharge four days ago, he has experienced increased left foot pain, nausea, dizziness, and a headache. He denies any history of diabetes, with an HbA1c of 5.4. He has no past surgical history, denies home medications, and was hospitalized four days ago for the same condition. He lives with his girlfriend in [place], is unemployed, smokes 2-5 cigarettes daily for five years, and has a history of methamphetamine abuse. He denies alcohol use and has no known allergies. On examination, he was alert and oriented. Patient is hemodynamically stable, afebrile, breathing room air comfortably. # Left 5th toe cellulitis: status post IV fluid, vancomycin Zosyn, Podiatry consulted, complete I and D with General surgery, pending culture and sensitivity q.6 hours p.r.n. as needed pain management with Tylenol And Vida. # chronic methamphetamine abuse: Cessation counseling done at bedside. # Vitamin-D deficiency: Repleted # constipation: Colace b.i.d. p.r.n. added. # Possible UTI: Today patient is complaining of urinary symptoms, foul smelling. Already on IV vancomycin and Zosyn. Urine culture pending. # diet: Continue as tolerated. Barriers to discharge: Cultures pending, definitive antibiotic therapy and duration yet to be determined. Outpatient follow up with Dr. Aileen tai in clinic on 10/25. Case discussed with Dr. Nicolas . Code status: Full code. Complex patient care discussion needed total 39 minutes. Plan discussed with: Patient, Other (Primary team, RN.) My Orders My Orders Orders - KATE CHRISTOPHER Procedure Category Date Status Time Urinalysis LAB 10/16/24 Uncollected 11:24 Dietary Evaluation Review Comments: 1. Consider adding Rick BID (180kcal, 5g pro) to diet Expected Outcomes/Goals: 1. Pt will consume >75% of estimated needs within 3-5 days KATE CHRISTOPHER Oct 16, 2024 13:28
[2024-10-16 17:00] VITALS: BP 112/46; PULSE 57; RESP 20; TEMP 97.9; O2SAT 98
[2024-10-16 20:00] VITALS: RESP 20; O2SAT 98
[2024-10-16 21:00] VITALS: BP 122/62; PULSE 73; RESP 18; TEMP 98; O2SAT 100
[2024-10-16 23:03] LABS: Urine Bacteria None Seen /hpf (None Seen)
[2024-10-16 23:12] LABS: Urine Blood Negative /uL (Negative); Urine Clarity Clear (Clear); Urine Color Light-Yellow (Yellow); Urine Protein, UAD Negative (Negative); Urine Specific Gravity 1.024 (1.001-1.035); Urine Urobilinogen Normal (Negative); Urine WBC 1 /hpf (0 - 3); Urine pH 6.5 (5.0-9.0)
[2024-10-17] VITALS (8 sets, daily range): BP systolic 98–122; BP diastolic 54–72; PULSE 59–68; RESP 17–20; TEMP 97.6–98.1; O2SAT 96–100
[2024-10-17] MEDS: VANCOMYCIN 1.25GM/250ML 250 ML IV SCH (11:00)
[2024-10-17 11:15] LABS: Hematocrit 32.3 % (41.0-53.0); Hemoglobin 10.9 g/dL (13.5-17.5); Mean Corpuscular Hemoglobin 30.1 pg (28.0-32.0); Mean Corpuscular Hgb Conc. 33.8 g/dL (32.0-36.0); Mean Corpuscular Volume 88.9 fL (80.0-100.0); Platelet Count (auto) 291 10^3/uL (140-450); Red Blood Cells 3.63 10^6/uL (4.5-5.90); Red Cell Distribution Width 12.9 % (11.8-14.3)
[2024-10-17 11:21] LABS: Basophils % (manual) 0 (0.0-2.0); Blast Cells 0; Metamyelocytes % 0; Myelocytes % 0; Promyelocytes % 0; Reactive Lymphocytes 0
[2024-10-17 11:23] LABS: Chloride 108 mmol/L (98-107); Potassium 3.7 mmol/L (3.5-5.1); Sodium 142 mmol/L (136-145)
[2024-10-17 11:24] LABS: Anion Gap 6 (5-15); Calcium 9.1 mg/dL (8.7-10.4); Carbon Dioxide 28 mmol/L (20-31)
[2024-10-17 11:29] LABS: BUN/Creatinine Ratio 14.7 (10.0-20.0); Blood Urea Nitrogen 10 mg/dL (9-23); Glucose 109 mg/dL (74-106)
[2024-10-17 12:08] LABS: Band Neutrophils % (manual) 2; Eosinophils % (manual) 2 (0-7); Lymphocytes % (manual) 58 (10.0-50.0); Monocytes % (manual) 10 (0-12); Smudge Cells 1 /100 WBC
[2024-10-17 12:09] LABS: Large Platelets FEW; Platelet Estimate Adequa
--- NOTE | 2024-10-17 17:27 | DVHPNRES ---
Progress Note Date Seen: Oct 17, 2024 Resident Creating Document: MEY MEDINA RESIDENT Has the PT tested + for MRSA If YES, has PT been informed?: Yes Medical Necessity Reason Pt with a Central, PICC or Fol: No Subjective Review of Systems Patient is a 34-year-old male with no significant past medical history who came in due to worsening left 5th toe cellulitis. According to the patient, 1 week ago he was diagnosed with left 5th toe cellulitis and was discharged with amoxicillin 4 days ago. Patient notes that since discharge he has been experiencing worsening left foot pain, nausea, dizziness and a headache which prompted this visit to the hospital. Denies any history of diabetes, Hb A1c 5.4. Past surgical history: Denies Home medications: Denies Past Hospitalization: 4 days ago due to left 5th toe cellulitis Social & Personal history: Patient lives with his girlfriend in [place] and is unemployed. Smokes 2-5 cigarettes per day for 5 years. Denies using any alcohol. Methamphetamine abuse history positive. Review of systems Patient is seen and examined at bedside. Patient is alert and oriented to time, place and person. Patient reports no shortness of breath, nausea, vomiting, no dysuria, no urinary hesitancy. Patient reports mild pain in the left lower extremity. Patient is status post incision and drainage of the left 5th toe cellulitis pod 2 with sterile dressing Objective vital signs Vital Sign Date Time Temp Pulse Resp B/P (MAP) Pulse Ox O2 Delivery O2 Flow Rate FiO2 10/17/24 12:34 97.7 59 20 98/62 (74) 99 97.7 10/17/24 08:00 Room Air* 0 21 Total Intake and Output 10/16/24 10/16/24 10/17/24 15:00 23:00 07:00 Intake Total 52 ml 1250 ml 1300 ml Output Total 750 ml Balance 52 ml 500 ml 1300 ml medications Current Medications Medications Dose Ordered Sig/Nigel Route Start Time Stop Time Status Last Admin Dose Admin Sodium Chloride 10 ml Q8HR IV 10/14/24 22:00 10/17/24 14:01 10 ML Ondansetron HCl 4 mg Q4HP PRN IV 10/14/24 20:15 Acetaminophen 650 mg Q6HP PRN PO 10/14/24 20:15 10/15/24 22:39 650 MG Vancomycin HCl 0 ml @ 0 mls/hr UD IV 10/14/24 21:15 Acetaminophen/ Hydrocodone Bitart 1 tab Q4HPRN PRN PO 10/15/24 00:15 10/17/24 15:41 1 TAB Docusate Sodium 100 mg BIDPRN PRN PO 10/16/24 18:30 Vancomycin HCl 250 ml @ 200 mls/hr Q12H IV 10/17/24 11:00 10/17/24 11:00 200 MLS/HR Ceftriaxone Sodium 50 ml @ 100 mls/hr DAILY@09 IV 10/18/24 09:00 Examination Physical Examination Gen - no pallor, no icterus, no cyanosis, no clubbing, no LAD, no edema . Skin - Patients skin is warm and dry.. HEENT - normocephalic, atraumatic, moist mucous membranes. Neck - full ROM, no LAD, no JVD Pulmonary - B/L vesicular breath sounds. no crackles , no wheezing, no stridor. cardiovascular - normal S1,S2 heard. no murmurs heard. peripheral pulses normal radial 2+, pedal 2+. capillary refill normal <2 secs. GI - soft abdomen without tenderness to palpation. no hepatospleenomegaly. Bowel sounds + Neurological - Patient is A/O X 3 . Bilateral upper extremity strength 5/5, bilateral lower extremity strength 5/5, no facial droop, normal speech, no tremor, no sensory deficiets. Extremities- status post incision and drainage of left 5th toe cellulitis with sterile moist to dry dressing changed twice daily. laboratory and microbiology Laboratory Tests 10/17/24 10:38 Test 10/17/24 10:38 Range/Units Serum Glucose 109 H 74-106 mg/dL Microbiology Date/Time Source Procedure Growth Status 10/16/24 12:08 Nose MRSA Screen - Final Complete 10/15/24 11:19 Blood Blood Culture - Preliminary NO GROWTH AFTER 48 HOURS OF INCUBATION. Resulted 10/14/24 23:48 Voided Urine Urine Culture - Final Complete Problem List/Assessment/Plan Problem List/Assessment/Plan Assessment and plan Left 5th toe cellulitis surgery consulted with Dr. Gallagher, status post incision and drainage pod 2, stable Wound Gram stain and culture shows Gram-positive cocci in pairs and moderate growth Staph aureus with susceptibility to follow On IV vancomycin per pharmacy IV Zosyn stopped on 10/17 and patient is started on ceftriaxone 1 g IV daily Blood culture shows no growth Left lower extremity arterial duplex shows no hemodynamically significant stenosis Methamphetamine abuse - counseled patient extensively on the harmful effects of methamphetamine on his health and well-being Vitamin-D deficiency - replenished Final wound culture and antibiotic susceptibilities pending following which the patient will be discharged and follow up with Dr. Gallagher in the outpatient clinic on 10/25/24. Goals of care discussed with the patient for over 20 minutes. Full code Plan discussed with Dr. Finley Plan discussed with: Patient My Orders My Orders Orders - MEY MEDINA Procedure Category Date Status Time Ceftriaxone 1gm/50ml PHA 10/18/24 In Process D5w (Rocephin) 09:00 Dietary Evaluation Review Comments: 1. Consider adding Rick BID (180kcal, 5g pro) to diet Expected Outcomes/Goals: 1. Pt will consume >75% of estimated needs within 3-5 days Date of Service: Oct 17, 2024 Billing Provider: JOSE DANIEL BATISTA MD Common Visit Codes: [id number] INP/OBS CARE(HIGH) MEY MEDINA RESIDENT Oct 17, 2024 17:27 JOSE DANIEL BATISTA MD Oct 19, 2024 23:04
[2024-10-18] VITALS (9 sets, daily range): BP systolic 102–114; BP diastolic 47–60; PULSE 64–79; RESP 16–18; TEMP 97.5–98.3; O2SAT 98–100
[2024-10-18 06:55] LABS: Basophils # (auto) 0.1 10 ^3/uL (0-0.2); Basophils % (auto) 2.2 % (0.0-2.0); Eosinophils # (auto) 0.2 10 ^3/uL (0-0.8); Hematocrit 35.8 % (41.0-53.0); Lymphocytes # (auto) 2.8 10 ^3/uL (0.4-5.4); Mean Corpuscular Hemoglobin 29.5 pg (28.0-32.0); Mean Corpuscular Hgb Conc. 33.4 g/dL (32.0-36.0); Mean Corpuscular Volume 88.4 fL (80.0-100.0); Monocytes # (auto) 0.6 10 ^3/uL (0-1.3); Monocytes % (auto) 11.1 % (0.0-12.0); Neutrophils # (auto) 1.5 10 ^3/uL (1.6-8.6); Neutrophils % (auto) 28.7 % (37.0-80.0); Nucleated Red Blood Cells % 0.1 %; Platelet Count (auto) 334 10^3/uL (140-450); Red Blood Cells 4.06 10^6/uL (4.5-5.90); Red Cell Distribution Width 13.1 % (11.8-14.3); White Blood Cell 5.2 10^3/uL (4.4-10.8)
[2024-10-18 07:19] LABS: Chloride 104 mmol/L (98-107); Potassium 4.4 mmol/L (3.5-5.1); Sodium 139 mmol/L (136-145)
[2024-10-18 07:20] LABS: Carbon Dioxide 28 mmol/L (20-31)
[2024-10-18 07:25] LABS: BUN/Creatinine Ratio 17.5 (10.0-20.0); Blood Urea Nitrogen 11 mg/dL (9-23); Glucose 86 mg/dL (74-106)
[2024-10-18 07:35] LABS: Anion Gap 7 (5-15)
[2024-10-18] MEDS: DOCUSATE SOD 100 MG CAP PO PRN (08:34)
[2024-10-18] MEDS: cefTRIAXone 1GM/50ML D5W 50 ML IV SCH (08:34)
[2024-10-18] MEDS ORDERED: HYDR-4798 PO (12:01)
[2024-10-18] MEDS ORDERED: BACDST PO (12:46)
--- NOTE | 2024-10-18 19:43 | DVHDSRES ---
Discharge Summary Date of Admission Resident Creating Document: MEY MEDINA RESIDENT Oct 14, 2024 at 20:11 Date of Discharge: Oct 18, 2024 Admitting Diagnosis # left foot cellulitis # methamphetamine abuse disorder # tobacco abuse disorder Wounds: left 5th toe s/p I&D Labs/Diagnostic Data: Laboratory Results Test 10/18/24 04:57 10/17/24 10:38 10/17/24 01:36 10/16/24 22:50 White Blood Count 5.2 10^3/uL (4.4-10.8) Red Blood Count 4.06 10^6/uL (4.5-5.90) Hemoglobin 12.0 g/dL (13.5-17.5) Hematocrit 35.8 % (41.0-53.0) Mean Corpuscular Volume 88.4 fL (80.0-100.0) Mean Corpuscular Hemoglobin 29.5 pg (28.0-32.0) Mean Corpuscular Hemoglobin Concent 33.4 g/dL (32.0-36.0) Red Cell Distribution Width 13.1 % (11.8-14.3) Platelet Count 334 10^3/uL (140-450) Mean Platelet Volume 9.2 fL (6.9-10.8) Neutrophils (%) (Auto) 28.7 % (37.0-80.0) Lymphocytes (%) (Auto) 54.0 % (10.0-50.0) Monocytes (%) (Auto) 11.1 % (0.0-12.0) Eosinophils (%) (Auto) 4.0 % (0.0-7.0) Basophils (%) (Auto) 2.2 % (0.0-2.0) Neutrophils # (Auto) 1.5 10 ^3/uL (1.6-8.6) Lymphocytes # (Auto) 2.8 10 ^3/uL (0.4-5.4) Monocytes # (Auto) 0.6 10 ^3/uL (0-1.3) Eosinophils # (Auto) 0.2 10 ^3/uL (0-0.8) Basophils # (Auto) 0.1 10 ^3/uL (0-0.2) Nucleated Red Blood Cells 0.1 % Sodium Level 139 mmol/L (136-145) Potassium Level 4.4 mmol/L (3.5-5.1) Chloride Level 104 mmol/L (98-107) Carbon Dioxide Level 28 mmol/L (20-31) Anion Gap 7 (5-15) Blood Urea Nitrogen 11 mg/dL (9-23) Creatinine 0.63 mg/dL (0.700-1.30) Glomerular Filtration Rate Calc 129 mL/min (>90) BUN/Creatinine Ratio 17.5 (10.0-20.0) Serum Glucose 86 mg/dL (74-106) Calcium Level 9.0 mg/dL (8.7-10.4) Differential Total Cells Counted 100.0 (100) Neutrophils % (Manual) 28 (37.0-80.0) Band Neutrophils % (Manual) 2 Lymphocytes % (Manual) 58 (10.0-50.0) Monocytes % (Manual) 10 (0-12) Eosinophils % (Manual) 2 (0-7) Basophils % (Manual) 0 (0.0-2.0) Metamyelocytes % (manual) 0 Myelocytes % (Manual) 0 Promyelocytes % (Manual) 0 Blast Cells % (Manual) 0 Reactive Lymphocytes 0 Smudge Cells 1 /100 WBC Platelet Estimate [place] Large Platelets Few Vancomycin Level Trough 4.0 ug/mL (5-10) Urine Color Light-yellow (Yellow) Urine Clarity Clear (Clear) Urine pH 6.5 (5.0-9.0) Urine Specific [place] 1.024 (1.001-1.035) Urine Protein Negative (Negative) Urine Ketones Trace (Negative) Urine Blood Negative /uL (Negative) Urine Nitrite Negative (Negative) Urine Bilirubin Negative (Negative) Urine Urobilinogen Normal mg/dL (Negative) Urine Leukocyte Esterase Negative /uL (Negative) Urine RBC None seen /hpf (0 - 3) Urine WBC 1 /hpf (0 - 3) Urine Squamous Epithelial Cells None seen /hpf (<5) Urine Bacteria None seen /hpf (None Seen) Urine Glucose Normal mg/dL (Normal) Test 10/15/24 11:19 10/15/24 04:36 10/14/24 23:48 10/14/24 20:30 Lactic Acid Level 0.9 mmol/L (0.4-2.0) Total Bilirubin 0.4 mg/dL (0.2-1.0) Aspartate Amino Transferase (AST) 13 U/L (13-40) Alanine Aminotransferase (ALT) 22 U/L (7-40) Alkaline Phosphatase 82 U/L (46-116) Total Protein 6.6 g/dL (5.7-8.2) Albumin 3.9 g/dL (3.2-4.8) Urine Mucus Few (None Seen) Urine Opiates Screen Pos (NEGATIVE) Urine Fentanyl Screen Neg (NEGATIVE) Urine Barbiturates Screen Neg (NEGATIVE) Urine Phencyclidine Screen Neg (NEGATIVE) Urine Amphetamines Screen Pos (NEGATIVE) Urine Benzodiazepines Screen Neg (NEGATIVE) Urine Cocaine Screen Neg (NEGATIVE) Urine Cannabinoids Screen Neg (NEGATIVE) Prothrombin Time 12.2 sec (9.3-11.8) Prothrombin Time INR 1.16 (0.9-1.15) Activated Partial Thromboplast Time 29.4 SEC (24.5-34.5) Test 10/14/24 17:29 Hemoglobin A1c 5.4 % A1C (<5.7) Vitamin B12 Level 670 pg/mL (211-911) Vitamin D 25-Hydroxy 29.8 ng/mL (30.0-100) Thyroid Stimulating Hormone (TSH) 0.85 uIU/mL (0.55-4.78) Plasma/Serum Blood Alcohol < 3.0 mg/dL (<10) Other Laboratory Tests 10/18/24 04:57 Brief Hx & Hospital Course: Patient is a 34-year-old male with a significant past medical history came to worsening left foot pain. Patient was admitted recently to the hospital with extremity cellulitis and was treated with IV antibiotics and discharged on amoxicillin oral. Patient reported that he started seeing discharged on his left 5th toe and the pain worsened associated with a headache and dizziness following which she came to the hospital. Consulted who did a incision and drainage of the left 5th toe abscess. G stain and culture from the wound showed growth of Gram-positive cocci pairs and Staph aureus. Patient was started on empiric IV antibiotic therapy. Patient is being discharged in stable condition to home with health services for wound care on Bactrim DS 1 tab p.o. b.i.d. and [place] for pain control. Patient is advised to follow up with with surgery in the outpatient clinic with on 10/25/24. Review of systems Patient is seen and examined at bedside. Patient is alert and oriented to time, place and person. Patient reports no shortness of breath, nausea, vomiting, no dysuria, no urinary hesitancy. Patient reports mild pain in the left lower extremity. Patient is status post incision and drainage of the left 5th toe cellulitis pod 3 with sterile dressing Physical Examination Gen - no pallor, no icterus, no cyanosis, no clubbing, no LAD, no edema . Skin - Patients skin is warm and dry.. HEENT - normocephalic, atraumatic, moist mucous membranes. Neck - full ROM, no LAD, no JVD Pulmonary - B/L vesicular breath sounds. no crackles , no wheezing, no stridor. cardiovascular - normal S1,S2 heard. no murmurs heard. peripheral pulses normal radial 2+, pedal 2+. capillary refill normal <2 secs. GI - soft abdomen without tenderness to palpation. no hepatospleenomegaly. Bowel sounds + Neurological - Patient is A/O X 3 . Bilateral upper extremity strength 5/5, bilateral lower extremity strength 5/5, no facial droop, normal speech, no tremor, no sensory deficiets. Extremities- status post incision and drainage of left 5th toe cellulitis with sterile moist to dry dressing changed twice daily. Consults/Reason for consult Surgery consultation for left foot cellulitis Operations or Procedures Foot x-ray showing no evidence of acute fracture or dislocation Left lower extremity arterial duplex showing no significant stenosis Name of Procedure Performed Incision and drainage of left 5th toe abscess Preop Diagnosis: Left 5th toe abscess Postop Diagnosis: Same Surgeon: Frankie Gallagher MD Procedure Details Procedure Details: After induction of monitored anesthesia, patient's left foot was prepped and draped in standard surgical fashion. A 10 mL of plain 1% lidocaine was used to perform a left toe block. A zigzag incision was made over the anterior surface of his left 1st toe and immediately there was pus that was drained from the abscess cavity. Abscess cavity was swabbed for Gram stain and culture. The incision was then opened to completely drain the abscess cavity which measured roughly 2 cm in size. The surgical site was then irrigated and packed with quarter-inch iodoform packing strips. Surgical site was cleaned and dried and dressings were applied. Sponge, needle, instrument count at the end of the case were reported to be correct by the nursing staff. The patient tolerated procedure well was awakened transferred to recovery in stable condition. Condition at Discharge: Good Final Diagnosis/Problems List # Left 5th toe cellulitis # Methamphetamine abuse # Vitamin-D deficiency Discharge Disposition: Home with Health Services Discharge Instruct/Medications Diet: Regular Activity: No Restrictions, As Tolerated Follow Up/Referral: Follow up in the surgery outpatient clinic with Dr Gallagher on 10/25/2024 Follow up in the DC clinic in one week Medications: As per EMR Discharge Statement: "Patient was advised to return to the ER or call 911 if any headaches, dizziness, shortness of breath, chest pain, abdominal pain, bleeding, fevers, or worsening of medical condition. Patient was counseled about treatment plan, medications, possible side effects, patientverbalized understanding. All questions were answered to the best of my ability. This discharge took greater then 30 minutes in planning, reviewing documentation, counseling the patient, and discussing with other team members." ASSESSMENT ASSESSMENT Assessment # Left 5th toe cellulitis # Methamphetamine abuse # Vitamin-D deficiency Date of Service: Oct 18, 2024 Billing Provider: JOSE DANIEL BATISTA MD Common Visit Codes: 34091-STU/OBS DISCH DAY >30min MEY MEDINA RESIDENT Oct 18, 2024 19:43 JOSE DANIEL BATISTA MD Oct 19, 2024 22:49
== END 2024-10-18 16:30 | disposition home health service (06) | DRG 383 ==
LOC: EDSEX 17:06 → ER 17:06 → EDBD 17:06 → EDUNIT# 17:06 → OVERFLOW 20:11 → WEST WING 10-15 14:11
PROVIDERS: ADMIT Student in an Organized Health Care Education/Training Program; ATTEND Emergency Medicine
PROC: 0Y9N0ZZ Drainage of Left Foot, Open Approach (ICD-10-PCS; principal; 2024-10-15 12:31)
DX: L03.032 Cellulitis of left toe (principal); L02.612 Cutaneous abscess of left foot; L03.116 Cellulitis of left lower limb; E55.9 Vitamin D deficiency, unspecified; F15.10 Other stimulant abuse, uncomplicated; N39.0 Urinary tract infection, site not specified; F17.210 Nicotine dependence, cigarettes, uncomplicated; K59.00 Constipation, unspecified; Z79.891 Long term (current) use of opiate analgesic; Z79.899 Other long term (current) drug therapy; Z59.00 Homelessness unspecified; Z71.6 Tobacco abuse counseling; Z56.0 Unemployment, unspecified
CPT/HCPCS: 36415; 73620; 80048; 80053; 80202; 80307; 80320; 81001; 82306; 82607; 83036; 83605; 84443; 85007; 85025; 85027; 85610; 85730; 87040; 87077; 87081; 87086; 87186; 87205; 93926; 96365; 96375; G0378; J1100; J1885; J2003; J2250; J2405; J2543; J2704; J3490

== ENCOUNTER 2024-10-29 01:16 | Emergency (ER) | payer MEDICAID ==
[~2024-10-29] VITALS: Ht 165.1 cm; Wt 160.0 kg
--- NOTE | 2024-10-29 01:48 | ED.PDOC ---
Musculoskeletal HPI Comments 34-year-old male who came to ER via EMS due to bilateral foot pain. Patient was seen and admitted here at [facility] twice this month for the same problems. Patient does have history of methamphetamine abuse. Has been having bilateral foot pain and swelling this month, recently discharged here 10 days ago for left foot cellulitis and methamphetamine abuse, however patient did not fill up his home prescription. Chief Complaint: Lower extremity Time Seen by MD: 01:47 Primary Care Provider: NONE Reviewed Notes: Nurses Notes Allergies: Coded Allergies: NO KNOWN ALLERGIES (Unverified , 09/30/24) Home Meds Active Scripts Mupirocin Calcium (Topical) (MUPIROCIN) 2 % Cre, 2 % EX BID for 14 Days, #30 GRAMS Prov:KATY SIMON MD 10/29/24 Clindamycin Hcl (Clindamycin Hcl) 300 Mg Cap, 1 CAP PO BID for 10 Days, #20 CAP Prov:KATY SIMON MD 10/29/24 Sulfamethoxazole W/Trimethopri (Bactrim Ds Tablet) 1 Tab Tb, 1 TAB PO BID for 7 Days, #14 TAB Prov:ZAHRAA ACUNA RESIDENT 10/18/24 Hydrocodone-Acetaminophen (Hydrocodone Bitartrate/AC 10-325 mg) 1 Tab Tab, 1 TAB PO TIDPRN PRN for 5 Days, #15 TAB 0 Refills Prov:JOSE DANIEL BATISTA MD 10/18/24 Hydrocodone-Acetaminophen (Hydrocodone Bitartrate/AC 5-325 mg) 1 Tab Tab, 1 TAB PO Q6HP PRN, #15 TAB Prov:TORY BARRETT MD 10/03/24 Information Source: Patient Mode of Arrival: EMS Location: Bilateral Extremity Location: Foot Timing: Weeks Prehospital treatment: None Severity: Moderate Able to Move Extremity: Yes Bear Weight: Fully Pain: Moderate Mechanism: Spontaneous Circumstances: Spontaneous Onset of Symptoms: Spontaneous Symptoms: Swelling, Pain Associated signs and symptoms: Foot pain (Bilateral) Past Medical History PAST MEDICAL HISTORY: Denies Surgical History: Denies all surgeries Family History Family History: Reviewed,noncontributory to illness Social History Smoker: Cigarettes Alcohol: Denies ETOH Use Drugs: Methamphetamine Lives In: Homeless Constitutional: denies: chills, diaphoresis, fatigue, fever, malaise, sweats, weakness, others EENTM: denies: blurred vision, double vision, ear bleeding, ear discharge, ear drainage, ear pain, ear ringing, eye pain, eye redness, hearing loss, mouth pain, mouth swelling, nasal discharge, nose bleeding, nose congestion, nose pain, photophobia, tearing, throat pain, throat swelling, voice changes, others Respiratory: denies: cough, hemoptysis, orthopnea, SOB at rest, shortness of breath, SOB with excertion, stridor, wheezing, others Cardiovascular: denies: chest pain, dizzy spells, diaphoresis, Dyspnea on exertion, edema, irregular heart beat, left arm pain, lightheadedness, palpitations, PND, syncope, others Gastrointestinal: denies: abdomen distended, abdominal pain, blood streaked bowels, constipated, diarrhea, dysphagia, difficulty swallowing, hematemesis, me marian, nausea, poor appetite, poor fluid intake, rectal bleeding, rectal pain, vomiting, others Genitourinary: denies: burning, dysuria, flank pain, frequency, hematuria, incontinence, penile discharge, penile sore, pain, testicle pain, testicle swelling, urgency, others Neurological: denies: dizziness, fainting, headache, left sided numbness, left sided weakness, numbness, paresthesia, pre-existing deficit, right sided numbness, right sided weakness, seizure, speech problems, tingling, tremors, weakness, others Musculoskeletal: reports: others (Bilateral foot pain and swelling); denies: back pain, gout, joint pain, joint swelling, muscle pain, muscle stiffness, neck pain Integumetry: denies: bruises, change in color, change in hair/nails, dryness, laceration, lesions, lumps, rash, wounds, others Allergic/Immunocompromised: denies: Difficulty Healing, Frequent Infections, Hives, Itching, others Hematologic/Lymphatic: denies: anemia, blood clots, easy bleeding, easy bruising, swollen glands, others Endocrine: denies: excessive hunger, excessive sweating, excessive thirst, excessive urination, flushing, intolerance to cold, intolerance to heat, unexplained weight gain, unexplained weight loss, others Psychiatric: denies: anxiety, bipolar disorder, depression, hopeless, panic disorder, schizophrenia, sleepless, suicidal, others Physical Exam General Appearance: No Apparent Distress, Normal HEENT: Normal ENT Inspection, Pharynx Normal, TMs Normal Neck: Full Range of Motion, Non-Tender, Normal, Normal Inspection Respiratory: Chest Non-Tender, Lungs Clear, No Accessory Muscle Use, No Respiratory Distress, Normal Breath Sounds Cardiovascular: No Edema, No JVD, No Murmur, No Gallop, Normal Peripheral Pulses, Regular Rate/Rhythm Breast Exam: Deferred Gastrointestinal: No Organomegaly, Non Tender, No Pulsatile Mass, Normal Bowel Sounds, Soft Genitalia: Deferred Pelvic: Deferred Rectal: Deferred Extremities: No calf tenderness, Normal capillary refill, Normal inspection, Normal range of motion, Non-tender, No pedal edema Musculoskeletal : Apperance: Normal Neurologic: Alert, recycling or rubbish collector II-XII nml as Tested, No Motor Deficits, Normal Affect, Normal Mood, No Sensory Deficits Cerebellar Function: Normal Reflexes: Normal Skin: Dry, Normal Color, Warm Lymphatic: No Adenopathy Was a procedure done? Was a procedure done?: No Differential Diagnosis EXT Differential Diagnosis: Cellulitis, Other (Abscess) X-Ray, Labs, Meds, VS Vital Signs Date Time Temp Pulse Resp B/P (MAP) Pulse Ox O2 Delivery O2 Flow Rate FiO2 10/29/24 03:21 98.5 98 16 116/76 (89) 99 98.5 10/29/24 03:14 Room Air* 0 21 10/29/24 01:16 98.5 101 16 108/91 (97) 98 Time of 1ST Reevaluation: 01:44 Reevaluation 1ST: Unchanged Patient Education/Counseling: Diagnosis, Treatment Family Education/Counseling: No Family Present Departure 1 Departure Time of Disposition: 02:00 Impression: Primary Impression: Cellulitis of both feet Disposition: 01 HOME / SELF CARE / HOMELESS Condition: Stable e-Prescriptions Mupirocin Calcium (Topical) (MUPIROCIN) 2 % Cre 2 % EX BID for 14 Days, #30 GRAMS Prov: KATY SIMON MD 10/29/24 Clindamycin Hcl (Clindamycin Hcl) 300 Mg Cap 1 CAP PO BID for 10 Days, #20 CAP Prov: KATY SIMON MD 10/29/24 Discharged With: Self Critical Care Note Critical Care Time?: No Stability Stability form required: No Heart Score Heart Score: Heart Score Response (Comments) Value History N/A 0 EKG N/A 0 Age N/A 0 Risk Factors N/A 0 Troponin N/A 0 Total 0 I personally scribed for KATY SIMON MD ([email or web address]) on 10/29/24 at 01:48. Electronically submitted by Emeterio Perez ([facility]). KATY SIMON MD Oct 29, 2024 01:48
[2024-10-29] MEDS: CLINDAMYCIN HCL 150 MG CAP PO ONE (03:10)
[2024-10-29 03:21] VITALS: BP 116/76; PULSE 98; RESP 16; TEMP 98.5; O2SAT 99
== END 2024-10-29 03:26 | disposition home or self-care (01) ==
LOC: ER 01:16 → EDBD 01:16 → EDUNIT# 01:16 → ER 03:24
DX: L03.116 Cellulitis of left lower limb (principal); L03.115 Cellulitis of right lower limb; F17.210 Nicotine dependence, cigarettes, uncomplicated; F15.90 Other stimulant use, unspecified, uncomplicated; Z79.899 Other long term (current) drug therapy; Z59.00 Homelessness unspecified